=== PATIENT | female | born 1995 | race Hispanic/Latino ===

== ENCOUNTER 2022-09-13 16:37 | Emergency (ER) | payer BC ==
--- OUTSIDE RECORDS SUMMARY | 2022-09-13 16:43 | XMS REPORT | Continuity of Care Document ---
:1995 Author Organization [facility] t Address [address] [place] [address] Care Team Providers Name Role Phone Usama Tejada Attending Clinician Unavailable Physician, Non Associated Attending Clinician Unavailable Shaka Cooley Attending Clinician Omid Cross DO Unavailable Unavailable Luis REDMOND, Michael Unavailable Natalie Duran MA Unavailable Unavailable Usama Tejada PA-C Unavailable Manohar REDMOND, Jeimy Unavailable Nhung Mcmullen MA Unavailable Unavailable Ambika Hoover MA Unavailable Unavailable Lindsey Lara MD Unavailable Payers Payer Name Policy Type Policy Number Effective Date Expiration Date S ource BLUE CROSS BLUE [id number] [facility] BLUE CROSS BLUE E [id number] 2020 2021 00:00:00 [facility] 00:00:00 BLUE CROSS BLUE D [id number] 2017 2018 00:00:00 [facility] 00:00:00 BLUE CROSS BLUE F [id number] 2019 2020 00:00:00 [facility] 00:00:00 $00 G [id number] 2021 00:00:00 Problems Condition Condition Condition Status Onset Resolution Last Treating Co mments Source Name Details Category Date Date Treatment Clinician Date R1 - R1 - Diagnosis Active 2016-04-11 Memoria RIGHT RIGHT 04-11 13:47:00 l LOWER LOWER 00:01: Sohail QUADRANT QUADRANT 00 PAIN PAIN Active 04/11/2016 [facility] DIZZINESS Diagnosis Active 2015-10-18 Memoria DIZZINESS 2- 11:31:00 l Active 00:00: [place] 10/18/2015 00 [facility] Problem Problem [facility] Abortions, Abortions, Active 2012-02-04 Tay, 2.16.84 induced inducedHar 11:33:42 Omid 0.1 .113 rison, DO 883.4.2 TyeComment s: 0 0 0. Abortions, Abortions, Active 2012-02-04 Tay, 2.16.84 spontaneou spontaneou 11:33:42 Arena 0.1.113 s sHarrison, 883.4. 2 DO TyeComment s: 0 0 0. Adnexal Adnexal Active 2016-04-15 Luis, 2. 16.84 mass mass 16:44:27 Branch 0.1.113 (N94.9) 883.4.2 (625.8)Oliver carrillo, [facility] Branch Obesity Obesity Active 2022-01-03 [employer], 2.16.84 with body with body 10:52:12 Natalie 0. 1.113 mass index mass index 88 3.4.2 of 30.0 - of 30.0 - 39.9 39.9 (E66.9) (278.00)Vi ALICIA ly Natalie Deliveries Deliveries Active 2022-01-03 [employer], 2.16.84 (Para) (Para)Vill 10:54:15 Natalie 0.1. 113 ALICIA guzman 883.4.2 ElisaComme nts: 1. Encounter Encounter Active 2022-01-03 Usama Tejada 2.16.84 for for 11:17:11 0.1.113 screening screening 883. 4.2 for for infections infections with with predominan predominan tly sexual tly sexual mode of mode of transmissi transmissi on on (Z11.3) (V74.5)Trvais ruffin PA-C Usama Ectopics EctopicsHa 85489-6 Active 2012-02-04 Tay, 2.16.84 DO cornelia 11:33:42 Arena 0.1. 113 TyeComment 883.4. 2 s: 0 0 0. ENDOMETRIO ENDOMETRIO 14109-4 Active 2019-03-25 B[facility] 2.16.84 SIS NOS SIS NOS 14:02:13 r, Jeimy 0.1. 113 (617.9)Bog 883.4. 2 RUY hathaway Jeimy GravidaSil 22011-6 Active 2017-06-01 Mcmullen, 2.1684 ALICIA estevez 08:34:20 Nhung 0.1.113 JessicaCom 883.4. 2 ments: 1. Never Never 34854-0 Active 2019-03-25 Hoover, 2.1 6.84 smoked smoked 13:52:10 Ambika 0.1.113 cigarettes cigarettes 88 3.4.2 (Z78.9) (V49.89)Melvin, MA Ambika Never Never 02703-4 Active 2022-01-03 Renee, .. smoked smoked 10:52:11 Natalie 0.1.113 cigarettes cigarettes 88 3.4.2 (Z78.9) (V49.89)Vi [facility] Natalie Obesity Obesity 91005-6 Active 2019-03-25 Hoover, with body with body 13:48:30 Ambika 0. 1.113 mass index mass index 88 3.4.2 of 30.0 - of 30.0 - 39.9 39.9 (E66.9) (278.00)Melvin, MA Ambika Ovarian Ovarian 14330-9 Active 2016-05-07 Marco, 2. cyst cyst 16:10:52 Lindsey F 0.1.11 3 (N83.209) 883.4.2 (620.2)MD Lindsey Ferreira F Para ParaBogenr 94918-4 Active 2017-06-01 Bogenriede 2.16.84 RUY ugthrie 10:46:27 r, Jeimy 0. 1.113 NancyComme 883.4. 2 nts: 1. Pregnancie Pregnancie 91205-1 Active 2022-01-03 Renee, 2.16.84 s s 10:54:14 Natalie 0.1.113 () ()V 883 .4.2 ALICIA landon ElisaComme nts: 1. PretermHar 69173-8 Active 2012-02-04 Tay, 2.16.84 rison, DO 11:33:42 Arena 0.1.1 13 TyeComment 883.4. 2 s: 0 0 0. Stillbirth Stillbirth 17849-4 Active 2012-02-04 Tay, 2.16.84 s sHarrison, 11:33:42 Omid 0.1. 113 DO 883.4.2 TyeComment s: 0 0 0. Term TermHarris 19362-4 Active 2012-02-04 Tay, 2.16.84 on, DO 11:33:42 Arena 0.1.113 TyeComment 883.4. 2 s: 0 0 0. Adnexal Adnexal 12619-9 Active 2022-01-03 Renee, 2.16.84 mass mass 10:52:11 Natalie 0.1.113 (N94.9) 883.4.2 (625.8)Riya cui MA Natalie Ovarian Ovarian 63153-9 Active 2022-01-03 Renee, 2.16.84 cyst cyst 10:52:11 Natalie 0.1.113 (N83.209) 883.4.2 (620.2)Riya cui MA Natalie Low blood Low blood Problem Resolve 2016-04-14 Memoria pressure pressure d 03:30:47 l (disorder) (disorder) He rmann Resolved Problem 04/14/2016 [facility] Pre-eclamp Pre-eclam Problem Resolve 2016-04-14 Memoria joshua psia d 03:30:47 l (disorder) (disorder) He rmann Resolved Problem 04/14/2016 [facility] History of Past Illness Condition Condition Condition Status Onset Resolution Last Treating Co mments Source Name Details Category Date Date Treatment Clinician Date Discharge Problem 2015-10-21 2015-10-21 Memoria Diagnosis: Discharge 10-18 05:56:03 05:56:03 l Dizziness Diagnosis: 06:00: Her morris Dizziness 00 10/18/2015 10/21/2015 [facility] Allergies, Adverse Reactions, Alerts Allergy Allergy Status Severity Reaction(s) Onset Inactive Treating Comm ents Source Name Type Date Date Clinician No Known Allergy Active 2.16.84 Drug 0.1.113 Allergie 883.4.2 s No Known Allergy Active 2.16.84 Allergie 0.1.113 s 883.4.2 Social History Social Habit Start Date Stop Date Quantity Comments Source Alcohol Use: Non Drinker / No 2.16.8 40.1.69251 Alcohol Use. 3.4.2 Drug Use: No drug use. ..840.1.1 1388 3.4.2 Non-Contributory 2..840 .1.21378 Social History 3.4.2 Primary None. 840.1. 86582 Control Method: 3.4.2 Tobacco use: Never smoker. .840. 1.20030 3.4.2 Tobacco/Smoke None. .840.1. 55285 Exposure: 3.4.2 Sex Ass[birth year] At [birth year] Female [facility] 00:00:00 00:00:00 Smoking Status Start Date Stop Date Source Never smoked tobacco Medications Ordered Filled Start Stop Current Ordering Indication Dosage Frequency Signature Comments Components Source Medication Medication Date Date Medication? Clinician (SIG) Name Name DayQuil No DayQuilSta 2.16 84 4-29 tus: 0.1.113 10:58: Inactive 883.4.2 25 DayQuil 0 No DayQuilSta 2.16 .84 4-29 tus: 0.1.113 10:58: Inactive 883.4.2 25 DayQuil 0 No DayQuilSta 2.16 .84 4-29 tus: 0.1.113 10:58: Inactive 883.4.2 25 Aleve 220 2021-0 No Aleve 220 Medicatio 2.16.84 MG Oral 4-29 MG Oral n taken 0.1.11 3 Capsule 10:58: Capsule; as 883.4. 2 23 as needed needed. (220 OTC MG)Status: InactiveCo mments: Medication taken as needed. OTC Aleve 220 No Aleve 220 Medicatio 2.16.84 MG Oral 4-29 MG Oral n taken 0.1.11 3 Capsule 10:58: Capsule; as 883.4. 2 23 as needed needed. (220 OTC MG)Status: InactiveCo mments: Medication taken as needed. OTC Aleve 220 No Aleve 220 Medicatio 2.16.84 MG Oral 4-29 MG Oral n taken 0.1.11 3 Capsule 10:58: Capsule; as 883.4. 2 23 as needed needed. (220 OTC MG)Status: InactiveCo mments: Medication taken as needed. OTC Methocarbam No 750mg Every 4 CH RISTU ol 3-06 Hours as S (Robaxin) 23:06: needed for He alth 750 Mg 00 Moderate TABLET Pain(4-6) Tramadol No 50mg Every 6 ANTONETTE U Hcl 3-06 Hours as S (Ultram) 50 23:06: needed for Health Mg TAB 00 Moderate Pain(4-6) methylPREDN Yes methylPRED 2.16.84 ISolone 7-19 NISolone 0.1.113 Acetate 40 14:08: Acetate 40 8 83.4.2 MG/ML 09 MG/ML Injection Injection Suspension Suspension Ordered: 9Bogenried er, [facility] NancyInten t methylPREDN Yes methylPRED 2.16.84 ISolone 7-19 NISolone 0.1.113 Acetate 40 14:08: Acetate 40 8 83.4.2 MG/ML 09 MG/ML Injection Injection Suspension Suspension Ordered: 9Bogenried er, [facility] NancyInten t methylPREDN Yes methylPRED 2.16.84 ISolone 7-19 NISolone 0.1.113 Acetate 40 14:08: Acetate 40 8 83.4.2 MG/ML 09 MG/ML Injection Injection Suspension Suspension Ordered: 9Bogenried er, [facility] NancyInten t methylPREDN Yes methylPRED 2.16.84 ISolone 7-19 NISolone 0.1.113 Acetate 40 13:58: Acetate 40 8 83.4.2 MG/ML 21 MG/ML Injection Injection Suspension Suspension Ordered: 9Bogenried er, [facility] Tia mead methylPREDN 2018- Yes methylPRED 2.16.84 ISolone 7-19 NISolone 0.1.113 Acetate 40 13:58: Acetate 40 8 83.4.2 MG/ML 21 MG/ML Injection Injection Suspension Suspension Ordered: 9Bogenried er, [facility] 2018- Yes methylPRED 2.16.84 ISolone 7-19 NISolone 0.1.113 Acetate 40 13:58: Acetate 40 8 83.4.2 MG/ML 21 MG/ML Injection Injection Suspension Suspension Ordered: 9Bogenried er, [facility] Tia t Albuterol 2021- No 1{Ampul Albuterol one time 2.16.84 Sulfate 03-25 e} Sulfate in office 0.1 .113 (2.5 00:00: 00:00 (2.5 883.4.2 MG/3ML) 00 :00 MG/3ML) 0.083% 0.083% Inhalation Inhalation Nebulizatio Nebulizati n Solution on Solution; 1 (one) Ampule one time order for 1 days Quantity: 1 {Ampule}Re fills: 0Ordered: 2LLAURI pearson AdamStart: 9 End: 2Status: InactiveCo mments: one time in office ProAir HFA 2021- No 2{Inhal 6xD ProAir HFA Medicat io 2.16.84 108 (90 03-25 ation} 108 (90 n taken 0.1 .113 Base) 00:00: 00:00 Base) as 883.4.2 MCG/ACT 00 :00 MCG/ACT needed. Inhalation Inhalation Aerosol Aerosol Solution Solution; 2 (two) Inhalation every four hours, as needed for 7 days Quantity: 1 {Inhaler}R efills: 0Ordered: 2LLAURI pearson AdamStart: 9 End: 2Status: InactiveCo mments: Medication taken as needed. Promethazin 2021- No 5{Nieves Q0.25D Promethazi Medi catio 2.16.84 e-DM 03-25 liter} ne-DM n taken 0.1.113 6.25-15 00:00: 00:00 6.25-15 as 883.4. 2 MG/5ML Oral 00 :00 MG/5ML needed. Syrup Oral Syrup; 5 Milliliter four times daily, as needed for 5 days Quantity: 120 {Millilite r}Refills: 0Ordered: 2LLAURI pearson AdamStart: 9 End: 2Status: InactiveCo mments: Medication taken as needed. Albuterol 2021- No 1{Ampul Albuterol one time 2.16.84 Sulfate 03-25 e} Sulfate in office 0.1 .113 (2.5 00:00: 00:00 (2.5 883.4.2 MG/3ML) 00 :00 MG/3ML) 0.083% 0.083% Inhalation Inhalation Nebulizatio Nebulizati n Solution on Solution; 1 (one) Ampule one time order for 1 days Quantity: 1 {Ampule}Re fills: 0Ordered: LAURI Prakash AdamStart: 9 End: 2Status: InactiveCo mments: one time in office ProAir HFA 2021- No 2{Inhal 6xD ProAir HFA Medicat io 2.16.84 108 (90 03-25 ation} 108 (90 n taken 0.1 .113 Base) 00:00: 00:00 Base) as 883.4.2 MCG/ACT 00 :00 MCG/ACT needed. Inhalation Inhalation Aerosol Aerosol Solution Solution; 2 (two) Inhalation every four hours, as needed for 7 days Quantity: 1 {Inhaler}R efills: 0Ordered: 2LLAURI pearsontart: 9 End: 2Status: InactiveCo mments: Medication taken as needed. Promethazin 2021- No 5{Nieves Q0.25D Promethazi Medi catio 2.16.84 e-DM 03-25 liter} ne-DM n taken 0.1.113 6.25-15 00:00: 00:00 6.25-15 as 883.4. 2 MG/5ML Oral 00 :00 MG/5ML needed. Syrup Oral Syrup; 5 Milliliter four times daily, as needed for 5 days Quantity: 120 {Millilite r}Refills: 0Ordered: 2LLAURI pearson AdamStart: 9 End: 2Status: InactiveCo mments: Medication taken as needed. Albuterol 2021- No 1{Ampul Albuterol one time 2.16.84 Sulfate 03-25 e} Sulfate in office 0.1 .113 (2.5 00:00: 00:00 (2.5 883.4.2 MG/3ML) 00 :00 MG/3ML) 0.083% 0.083% Inhalation Inhalation Nebulizatio Nebulizati n Solution on Solution; 1 (one) Ampule one time order for 1 days Quantity: 1 {Ampule}Re fills: 0Ordered: LAURI Prakash AdamStart: 9 End: 2Status: InactiveCo mments: one time in office ProAir HFA 2021- No 2{Inhal 6xD ProAir HFA Medicat io 2.16.84 108 (90 03-25 ation} 108 (90 n taken 0.1 .113 Base) 00:00: 00:00 Base) as 883.4.2 MCG/ACT 00 :00 MCG/ACT needed. Inhalation Inhalation Aerosol Aerosol Solution Solution; 2 (two) Inhalation every four hours, as needed for 7 days Quantity: 1 {Inhaler}R efills: 0Ordered: 2LLAURI pearsontart: 9 End: 2Status: InactiveCo mments: Medication taken as needed. Promethazin 2021- No 5{Nieves Q0.25D Promethazi [facility] catio 2.16.84 e-DM 03-25 04-29 liter} ne-DM n taken 0.1.113 6.25-15 00:00: 00:00 6.25-15 as 883.4. 2 MG/5ML Oral 00 :00 MG/5ML needed. Syrup Oral Syrup; 5 Milliliter four times daily, as needed for 5 days Quantity: 120 {Millilite r}Refills: 0Ordered: 2LLAURI pearson AdamStart: 9 End: 2Status: InactiveCo mments: Medication taken as needed. Naprosyn 2016- No 1{Table Q0.5D Naprosyn Medicatio 2.16.84 500 MG Oral 05-18 t} 500 MG n taken 0. 1.113 Tablet 00:00: 00:00 Oral as 883.4.2 00 :00 Tablet; 1 needed. (one) take with Tablet two food times daily, as needed for 30 days Quantity: 60 {Tablet}Re fills: 1Ordered: ALICIA Spaulding rt: 7 End: 7Status: Discontinu edComments : Medication taken as needed. take with food Naprosyn 2016- No 1{Table Q0.5D Naprosyn Medicatio 2.16.84 500 MG Oral 05-18 t} 500 MG n taken 0. 1.113 Tablet 00:00: 00:00 Oral as 883.4.2 00 :00 Tablet; 1 needed. (one) take with Tablet two food times daily, as needed for 30 days Quantity: 60 {Tablet}Re fills: 1Ordered: ALICIA Spaulding rt: 7 End: 7Status: Discontinu edComments : Medication taken as needed. take with food Naprosyn 2016- No 1{Table Q0.5D Naprosyn Medicatio 2.16.84 500 MG Oral 05-18 t} 500 MG n taken 0. 1.113 Tablet 00:00: 00:00 Oral as 883.4.2 00 :00 Tablet; 1 needed. (one) take with Tablet two food times daily, as needed for 30 days Quantity: 60 {Tablet}Re fills: 1Ordered: ALICIA Spaulding rt: 7 End: 7Status: Discontinu edComments : Medication taken as needed. take with food AMOXICILLIN No AMOXICILLI Tooth 2.16.84 , 500MG 8-09 N, 500MG infection 0.1 .113 (Oral 15:59: (Oral 883.4.2 Capsule) 35 Capsule); (500 MG)Status: InactiveCo mments: Tooth infection AMOXICILLIN No AMOXICILLI Tooth 2.16.84 , 500MG 8-09 N, 500MG infection 0.1 .113 (Oral 15:59: (Oral 883.4.2 Capsule) 35 Capsule); (500 MG)Status: InactiveCo mments: Tooth infection AMOXICILLIN No AMOXICILLI Tooth 2.16.84 , 500MG 8-09 N, 500MG infection 0.1 .113 (Oral 15:59: (Oral 883.4.2 Capsule) 35 Capsule); (500 MG)Status: InactiveCo mments: Tooth infection MACROBID, 2016- No 1{Capsu Q0.5D MACROBID, 2.16.84 100MG (Oral 04-07-08 le} 100MG 0.1.11 3 Capsule) 00:00: 00:00 (Oral 883.4.2 00 :00 Capsule); 1 Capsule two times daily for 7 days Quantity: 14 {Capsule}R efills: 0Ordered: 07-Apr-2016 Tristan Navarro : 07-Apr-2016 End: 14-Apr-2016 Status: Inactive MACROBID, 2015- No 1{Capsu Q0.5D MACROBID, 2.16.84 100MG (Oral 04-07 08-08 le} 100MG 0.1.11 3 Capsule) 00:00: 00:00 (Oral 883.4.2 00 :00 Capsule); 1 Capsule two times daily for 7 days Quantity: 14 {Capsule}R efills: 0Ordered: 07-Apr-2016 Tristan Navarro : 07-Apr-2016 End: 14-Apr-2016 Status: Inactive MACROBID, 2015- No 1{Capsu Q0.5D MACROBID, 2.16.84 100MG (Oral 04-07 08-08 le} 100MG 0.1.11 3 Capsule) 00:00: 00:00 (Oral 883.4.2 00 :00 Capsule); 1 Capsule two times daily for 7 days Quantity: 14 {Capsule}R efills: 0Ordered: 07-Apr-2016 Tristan Navarro : 07-Apr-2016 End: 14-Apr-2016 Status: Inactive meclizine Yes 25 mg = 1 Mem oria 25 mg oral 2-11 tab, PO, l tablet 18:15: TID, PRN Sohail 00 dizziness, X 10 day, # 30 tab, 0 Refill(s) Meclizine No Notes: Memori a 2-11 (Same as: l 16:43: Antivert) [place] 00 PROMETHWARNER 2012-09- No 1{Table PROMETHAZI Medica candelaria 2.16.84 E HCL, 50MG 0-03 10-07 t} NE HCL, n taken 0 .1.113 (Oral 00:00: 00:00 50MG (Oral as 883.4 .2 Tablet) 00 :00 Tablet); 1 needed. (one) Dr. Daryl Abrams every eight hours as needed for nausea for 4 days Quantity: 12 {Tablet}Re fills: 0Ordered: 09-Jun-2013 LAURI Fernandez tart: 09-Jun-2013 End: 13-Jun-2013 Status: InactiveCo mments: Medication taken as needed. Dr. Jose Alberto HOFFMAN 2012-09- No 1{Table PROMETHAZI Medica candelaria 2.16.84 E HCL, 50MG 0-03 10-07 t} NE HCL, n taken 0 .1.113 (Oral 00:00: 00:00 50MG (Oral as 883.4 .2 Tablet) 00 :00 Tablet); 1 needed. (one) Dr. Daryl Abrams every eight hours as needed for nausea for 4 days Quantity: 12 {Tablet}Re fills: 0Ordered: 09-Jun-2013 LAURI Fernandez tart: 09-Jun-2013 End: 13-Jun-2013 Status: InactiveCo mments: Medication taken as needed. Dr. Jose Alberto HOFFMAN 2012-09- No 1{Table PROMETHAZI Medica candelaria 2.16.84 E HCL, 50MG 006-13 t} NE HCL, n taken 0 .1.113 (Oral 00:00: 00:00 50MG (Oral as 883.4 .2 Tablet) 00 :00 Tablet); 1 needed. (one) Dr. Daryl Abrams every eight hours as needed for nausea for 4 days Quantity: 12 {Tablet}Re fills: 0Ordered: 09-Jun-2013 LAURI Fernandez tart: 09-Jun-2013 End: 13-Jun-2013 Status: InactiveCo mments: Medication taken as needed. Dr. Jose Alberto LOBO, 2010-09- No 1{Table Q0.3333D ZOFRAN Medica candelaria 2.16.84 4MG (Oral 09-16 t_Dispe ODT, 4MG n taken 0.1.113 Tablet 00:00: 00:00 rse} (Oral as 883.4.2 Dispersible 00 :00 Tablet needed. ) Dispersibl e); 1 Tablet Disperse three times daily, as needed for 0 days Quantity: 15 {Tablet_Di sperse}Ref ills: 1Ordered: 09-Jun-2013 ALICIA Najera rt: 1 End: 09-Jun-2013 Status: Discontinu edComments : Medication taken as needed. ZOHENRY LOBO, 2010-09- No 1{Table Q0.3333D ZOFRAN Medica candelaria 2.16.84 4MG (Oral 09-16 t_Dispe ODT, 4MG n taken 0.1.113 Tablet 00:00: 00:00 rse} (Oral as 883.4.2 Dispersible 00 :00 Tablet needed. ) Dispersibl e); 1 Tablet Disperse three times daily, as needed for 0 days Quantity: 15 {Tablet_Di sperse}Ref ills: 1Ordered: 09-Jun-2013 Reinaldo ALICIA Tapia rt: 1 End: 09-Jun-2013 Status: Discontinu edComments : Medication taken as needed. ZOFRAN ODT, 2010-09- No 1{Table Q0.3333D ZOFRAN Medica candelaria 2.16.84 4MG (Oral 09-16- t_Dispe ODT, 4MG n taken 0.1.113 Tablet 00:00: 00:00 rse} (Oral as 883.4.2 Dispersible 00 :00 Tablet needed. ) Dispersibl e); 1 Tablet Disperse three times daily, as needed for 0 days Quantity: 15 {Tablet_Di sperse}Ref ills: 1Ordered: 09-Jun-2013 Reinaldo ALICIA Tapia rt: 1 End: 09-Jun-2013 Status: Discontinu edComments : Medication taken as needed. 2010-09- No 1{Table 2 .16.84 FORMULA, 0-20 10-03 t} FORMULA, 0.1.11 3 27-1MG 00:00: 00:00 27-1MG 883.4.2 (Oral 00 :00 (Oral Tablet) Tablet); 1 Tablet 1 tab daily for 30 days Quantity: 30 {Tablet}Re fills: 9Ordered: 09-Jun-2013 ALICIA Najera rt: 1 End: 09-Jun-2013 Status: Inactive 2010-09- No 1{Table 2 .16.84 FORMULA, 0-20 10-03 t} FORMULA, 0.1.11 3 27-1MG 00:00: 00:00 27-1MG 883.4.2 (Oral 00 :00 (Oral Tablet) Tablet); 1 Tablet 1 tab daily for 30 days Quantity: 30 {Tablet}Re fills: 9Ordered: 09-Jun-2013 ALICIA Najera rt: 1 End: 09-Jun-2013 Status: Inactive 2010-09- No 1{Table 2 .16.84 FORMULA, 0-20 10-03 t} FORMULA, 0.1.11 3 27-1MG 00:00: 00:00 27-1MG 883.4.2 (Oral 00 :00 (Oral Tablet) Tablet); 1 Tablet 1 tab daily for 30 days Quantity: 30 {Tablet}Re fills: 9Ordered: 09-Jun-2013 ALICIA Najera rt: 1 End: 09-Jun-2013 Status: Inactive ORTHO-CEPT 2010- No 1{Table ORTHO-CEPT 2.16.84 (28), 12-24 t} (28), 0.1.113 0.15-30MG-M 00:00: 00:00 0.15-30MG- 883.4.2 CG (Oral 00 :00 MCG (Oral Tablet) Tablet); 1 (one) Tablet qd for 0 days Quantity: 28 {Tablet}Re fills: 11Ordered: 08-Jul-2011 ALICIA Najera rt: 1 End: 08-Jul-2011 Status: Inactive ORTHO-CEPT 2010- No 1{Table ORTHO-CEPT 2.16.84 (28), 12-24 t} (28), 0.1.113 0.15-30MG-M 00:00: 00:00 0.15-30MG- 883.4.2 CG (Oral 00 :00 MCG (Oral Tablet) Tablet); 1 (one) Tablet qd for 0 days Quantity: 28 {Tablet}Re fills: 11Ordered: 08-Jul-2011 ALICIA Najera rt: 1 End: 08-Jul-2011 Status: Inactive ORTHO-CEPT 2010- No 1{Table ORTHO-CEPT 2.16.84 (28), 12-24 t} (28), 0.1.113 0.15-30MG-M 00:00: 00:00 0.15-30MG- 883.4.2 CG (Oral 00 :00 MCG (Oral Tablet) Tablet); 1 (one) Tablet qd for 0 days Quantity: 28 {Tablet}Re fills: 11Ordered: 08-Jul-2011 ALICIA Najera rt: 1 End: 08-Jul-2011 Status: Inactive BACTRIM DS, 2010- No 1{Table BACTRIM 2.16.84 800-160MG 12-24 t} DS, 0.1.113 (Oral 00:00: 00:00 800-160MG 883.4. 2 Tablet) 00 :00 (Oral Tablet); 1 Tablet BID for 5 days Quantity: 10 {Tablet}Re fills: 0Ordered: Garret carter rt: 1 End: 1Status: Inactive BACTRIM DS, 2010- No 1{Table BACTRIM 2.16.84 800-160MG 12-24 t} DS, 0.1.113 (Oral 00:00: 00:00 800-160MG 883.4. 2 Tablet) 00 :00 (Oral Tablet); 1 Tablet BID for 5 days Quantity: 10 {Tablet}Re fills: 0Ordered: Garret carter rt: 1 End: 1Status: Inactive BACTRIM DS, 2010- No 1{Table BACTRIM 2.16.84 800-160MG 12-24 t} DS, 0.1.113 (Oral 00:00: 00:00 800-160MG 883.4. 2 Tablet) 00 :00 (Oral Tablet); 1 Tablet BID for 5 days Quantity: 10 {Tablet}Re fills: 0Ordered: Garret Boyle rt: 1 End: 1Status: Inactive Vital Signs Vital Name Observation Time Observation Value Comments Source Temperature 2022-01-03 98.5 [degF] Method: Oral 2..840.1.1138 10:49:51 83.4.2 Pulse 2022-01-03 62 /min Pattern: Regular 2.840.1. 1138 10:49:51 83.4.2 Respiration Rate 2022-01-03 20 /min Pattern: 2.840.1. 1138 10:49:51 Unlabored 83.4.2 O2 SAT 2022-01-03 99 % Room air 2..840.1.1138 10:49:51 83.4.2 BP Systolic 2022-01-03 114 mm[Hg] Patient 2.840.1.1138 10:49:51 Position: 83.4.2 Sitting; Cuff Location: Left Arm; Cuff Size: Standard BP Diastolic 2022-01-03 79 mm[Hg] Patient 2.840.1.1138 10:49:51 Position: 83.4.2 Sitting; Cuff Location: Left Arm; Cuff Size: Standard Weight 2022-01-03 188 [lb_av] 2.840.1.1138 10:49:51 83.4.2 Height 2022-01-03 63.5 [in_us] 2.840.1.1138 10:49:51 83.4.2 BMI 2022-01-03 32.78 kg/m2 2.840.1.1138 10:49:51 83.4.2 BP Systolic 2019-03-25 116 mm[Hg] Patient 2.840.1.1138 13:47:01 Position: 83.4.2 Sitting; Cuff Location: Left Arm; Cuff Size: Standard BP Diastolic 2019-03-25 69 mm[Hg] Patient 2.840.1.1138 13:47:01 Position: 83.4.2 Sitting; Cuff Location: Left Arm; Cuff Size: Standard Weight 2019-03-25 202.25 [lb_av] 2..840.1.11 38 13:47:01 83.4.2 Height 2019-03-25 63.5 [in_us] 2.16.840.1.1138 13:47:01 83.4.2 BMI 2019-03-25 35.26 kg/m2 2.840.1.1138 13:47:01 83.4.2 Temperature 2019-03-25 98.1 [degF] Method: Oral 2..840.1.1138 13:47:01 83.4.2 Pulse 2019-03-25 86 /min Pattern: Regular 2.840.1. 1138 13:47:01 83.4.2 Respiration Rate 2019-03-25 18 /min Pattern: 2.0.1. 1138 13:47:01 Unlabored 83.4.2 O2 SAT 2019-03-25 99 % Room air 2.16.840.1.1138 13:47:01 83.4.2 Temperature 2017-06-01 98.4 [degF] Method: Oral 2.0.1.1138 08:30:38 83.4.2 Pulse 2017-06-01 77 /min Pattern: Regular 2.0.1. 1138 08:30:38 83.4.2 Respiration Rate 2017-06-01 20 /min Pattern: 2.0.1. 1138 08:30:38 Unlabored 83.4.2 BP Systolic 2017-06-01 103 mm[Hg] Patient 2..840.1.1138 08:30:38 Position: 83.4.2 Sitting; Cuff Location: Left Arm; Cuff Size: Standard BP Diastolic 2017-06-01 73 mm[Hg] Patient 2.840.1.1138 08:30:38 Position: 83.4.2 Sitting; Cuff Location: Left Arm; Cuff Size: Standard Weight 2017-06-01 242.9 [lb_av] 2.16.840.1.113 8 08:30:38 83.4.2 Height 2017-06-01 63.5 [in_us] 2.16.840.1.1138 08:30:38 83.4.2 BMI 2017-06-01 42.35 kg/m2 2.160.1.1138 08:30:38 83.4.2 Temperature 2017-05-18 97.8 [degF] Method: Oral 2.840.1.1138 11:35:28 83.4.2 Pulse 2017-05-18 80 /min Pattern: Regular 2.0.1. 1138 11:35:28 83.4.2 Respiration Rate 2017-05-18 18 /min Pattern: 2.0.1. 1138 11:35:28 Unlabored 83.4.2 BP Systolic 2017-05-18 109 mm[Hg] Patient 2.840.1.1138 11:35:28 Position: 83.4.2 Sitting; Cuff Location: Left Arm; Cuff Size: Standard BP Diastolic 2017-05-18 75 mm[Hg] Patient 2.16840.1.1138 11:35:28 Position: 83.4.2 Sitting; Cuff Location: Left Arm; Cuff Size: Standard Weight 2017-05-18 240 [lb_av] 2.16.840.1.1138 11:35:28 83.4.2 Height 2017-05-18 63.5 [in_us] 2.16.840.1.1138 11:35:28 83.4.2 BMI 2017-05-18 41.85 kg/m2 2.16840.1.1138 11:35:28 83.4.2 Temperature 2016-05-07 98.1 [degF] Method: Oral 2840.1.1138 15:47:14 83.4.2 Pulse 2016-05-07 86 /min Pattern: Regular 10.23.830.1. 1138 15:47:14 83.4.2 BP Systolic 2016-05-07 115 mm[Hg] Patient 2.840.1.1138 15:47:14 Position: 83.4.2 Sitting; Cuff Location: Left Arm; Cuff Size: Standard BP Diastolic 2016-05-07 76 mm[Hg] Patient 2..840.1.1138 15:47:14 Position: 83.4.2 Sitting; Cuff Location: Left Arm; Cuff Size: Standard Weight 2016-05-07 217.25 [lb_av] 2.16840.1.11 38 15:47:14 83.4.2 Height 2016-05-07 63.5 [in_us] 2.16.840.1.1138 15:47:14 83.4.2 BMI 2016-05-07 37.88 kg/m2 2.160.1.1138 15:47:14 83.4.2 Temperature 2016-04-15 98 [degF] Method: Oral 10.23.830.1.1138 15:56:53 83.4.2 Pulse 2016-04-15 75 /min Pattern: Regular 10.23.830.. 113 15:56:53 83.4.2 Respiration Rate 2016-04-15 21 /min Pattern: 2.16840.1. 1138 15:56:53 Unlabored 83.4.2 BP Systolic 2016-04-15 118 mm[Hg] Patient 2.16.840.1.1138 15:56:53 Position: 83.4.2 Sitting; Cuff Location: Left Arm; Cuff Size: Standard BP Diastolic 2016-04-15 78 mm[Hg] Patient 2..840.1.1138 15:56:53 Position: 83.4.2 Sitting; Cuff Location: Left Arm; Cuff Size: Standard Weight 2016-04-15 219.125 [lb_av] 2.16.840.1.1 138 15:56:53 83.4.2 Height 2016-04-15 63.5 [in_us] 2.16.840.1.1138 15:56:53 83.4.2 BMI 2016-04-15 38.21 kg/m2 2.16.840.1.1138 15:56:53 83.4.2 Temperature 2016-04-07 97.9 [degF] Method: Oral 2.16.840.1.1138 19:30:48 83.4.2 Pulse 2016-04-07 68 /min Pattern: Regular 2..840.1. 1138 19:30:48 83.4.2 Respiration Rate 2016-04-07 18 /min Pattern: 2.840.1. 1138 19:30:48 Unlabored 83.4.2 BP Systolic 2016-04-07 121 mm[Hg] Patient 2..840.1.1138 19:30:48 Position: 83.4.2 Sitting; Cuff Location: Left Arm; Cuff Size: Standard BP Diastolic 2016-04-07 82 mm[Hg] Patient 2..840.1.1138 19:30:48 Position: 83.4.2 Sitting; Cuff Location: Left Arm; Cuff Size: Standard Weight 2016-04-07 210.25 [lb_av] 2.16.840.1.11 38 19:30:48 83.4.2 Height 2016-04-07 63.5 [in_us] 2.16.840.1.1138 19:30:48 83.4.2 BMI 2016-04-07 36.66 kg/m2 2.16.840.1.1138 19:30:48 83.4.2 Temperature 2013-06-09 98 [degF] Method: Oral 2.16.840.1.1138 13:20:50 83.4.2 Pulse 2013-06-09 73 /min Pattern: Regular 2.16.840.1. 1138 13:20:50 83.4.2 Respiration Rate 2013-06-09 16 /min Pattern: 2.16.840.1. 1138 13:20:50 Unlabored 83.4.2 BP Systolic 2013-06-09 120 mm[Hg] Patient 2.16840.1.1138 13:20:50 Position: 83.4.2 Sitting; Cuff Location: Left Arm; Cuff Size: Standard BP Diastolic 2013-06-09 80 mm[Hg] Patient 2..840.1.1138 13:20:50 Position: 83.4.2 Sitting; Cuff Location: Left Arm; Cuff Size: Standard Weight 2013-06-09 217.2 [lb_av] 2.16.840.1.113 8 13:20:50 83.4.2 Height 2013-06-09 64.25 [in_us] 2.16.840.1.113 8 13:20:50 83.4.2 BMI 2013-06-09 36.99 kg/m2 2.16.840.1.1138 13:20:50 83.4.2 BMI Percentile 2013-06-09 98 % 2.16.840.1.11 38 13:20:50 83.4.2 BP Systolic 2012-02-12 125 mm[Hg] Patient 2.16840.1.1138 10:38:03 Position: 83.4.2 Sitting; Cuff Location: Left Arm; Cuff Size: Standard BP Diastolic 2012-02-12 71 mm[Hg] Patient 2.16.840.1.1138 10:38:03 Position: 83.4.2 Sitting; Cuff Location: Left Arm; Cuff Size: Standard BP Systolic 2012-02-04 144 mm[Hg] Patient 2.16.840.1.1138 10:49:52 Position: 83.4.2 Sitting; Cuff Location: Left Arm; Cuff Size: Standard BP Diastolic 2012-02-04 104 mm[Hg] Patient 2..840.1.1138 10:49:52 Position: 83.4.2 Sitting; Cuff Location: Left Arm; Cuff Size: Standard Pulse 2012-02-04 79 /min Pattern: Regular 2.840.1. 1138 10:49:52 83.4.2 Weight 2012-02-04 244 [lb_av] 2.840.1.1138 10:49:52 83.4.2 BP Systolic 2012-01-28 127 mm[Hg] Patient 2..840.1.1138 10:24:01 Position: 83.4.2 Sitting; Cuff Location: Left Arm; Cuff Size: Large BP Diastolic 2012-01-28 86 mm[Hg] Patient 2..840.1.1138 10:24:01 Position: 83.4.2 Sitting; Cuff Location: Left Arm; Cuff Size: Large Weight 2012-01-28 226 [lb_av] 2..840.1.1138 10:24:01 83.4.2 BP Systolic 2012-01-19 126 mm[Hg] Patient 2..840.1.1138 09:55:21 Position: 83.4.2 Sitting; Cuff Location: Left Arm; Cuff Size: Standard BP Diastolic 2012-01-19 86 mm[Hg] Patient 2..840.1.1138 09:55:21 Position: 83.4.2 Sitting; Cuff Location: Left Arm; Cuff Size: Standard Weight 2012-01-19 220.8 [lb_av] 2..840.1.113 8 09:55:21 83.4.2 BP Systolic 2012-01-05 126 mm[Hg] Patient 2..840.1.1138 09:46:07 Position: 83.4.2 Sitting; Cuff Location: Left Arm; Cuff Size: Standard BP Diastolic 2012-01-05 81 mm[Hg] Patient 2..840.1.1138 09:46:07 Position: 83.4.2 Sitting; Cuff Location: Left Arm; Cuff Size: Standard Weight 2012-01-05 214 [lb_av] 2..840.1.1138 09:46:07 83.4.2 BP Systolic 2011-12-23 122 mm[Hg] Patient 2.840.1.1138 10:04:42 Position: 83.4.2 Sitting; Cuff Location: Left Arm; Cuff Size: Standard BP Diastolic 2011-12-23 78 mm[Hg] Patient 2..840.1.1138 10:04:42 Position: 83.4.2 Sitting; Cuff Location: Left Arm; Cuff Size: Standard Weight 2011-12-23 209.4 [lb_av] 2..840.1.113 8 10:04:42 83.4.2 BP Systolic 2011-12-12 111 mm[Hg] Patient 2.840.1.1138 14:32:50 Position: 83.4.2 Sitting; Cuff Location: Left Arm; Cuff Size: Standard BP Diastolic 2011-12-12 73 mm[Hg] Patient 2..840.1.1138 14:32:50 Position: 83.4.2 Sitting; Cuff Location: Left Arm; Cuff Size: Standard Weight 2011-12-12 203.2 [lb_av] 2..840.1.113 8 14:32:50 83.4.2 Temperature 2011-11-20 98.3 [degF] Method: Oral 2..840.1.1138 16:42:53 83.4.2 Pulse 2011-11-20 90 /min Pattern: Regular 2..840.1. 1138 16:42:53 83.4.2 Respiration Rate 2011-11-20 18 /min Pattern: 2..840.1. 1138 16:42:53 Unlabored 83.4.2 BP Systolic 2011-11-20 108 mm[Hg] Patient 2.840.1.1138 16:42:53 Position: 83.4.2 Sitting; Cuff Location: Left Arm; Cuff Size: Standard BP Diastolic 2011-11-20 70 mm[Hg] Patient 2..840.1.1138 16:42:53 Position: 83.4.2 Sitting; Cuff Location: Left Arm; Cuff Size: Standard Weight 2011-11-20 196.125 [lb_av] 2.16.840.1.1 138 16:42:53 83.4.2 BP Systolic 2011-10-23 126 mm[Hg] Patient 2.16840.1.1138 14:41:43 Position: 83.4.2 Sitting; Cuff Location: Left Arm; Cuff Size: Standard BP Diastolic 2011-10-23 73 mm[Hg] Patient 2.16840.1.1138 14:41:43 Position: 83.4.2 Sitting; Cuff Location: Left Arm; Cuff Size: Standard Weight 2011-10-23 187.6 [lb_av] 2.16.840.1.113 8 14:41:43 83.4.2 Pulse 2011-09-23 89 /min Pattern: Regular 2.840.1. 1138 09:38:04 83.4.2 BP Systolic 2011-09-23 110 mm[Hg] Patient 2.840.1.1138 09:38:04 Position: 83.4.2 Sitting; Cuff Location: Left Arm; Cuff Size: Standard BP Diastolic 2011-09-23 71 mm[Hg] Patient 2.840.1.1138 09:38:04 Position: 83.4.2 Sitting; Cuff Location: Left Arm; Cuff Size: Standard Weight 2011-09-23 178.8 [lb_av] 2.16.840.1.113 8 09:38:04 83.4.2 Temperature 2011-08-27 98.6 [degF] 2.16.840.1.1138 09:36:15 83.4.2 Pulse 2011-08-27 80 /min Pattern: Regular 2.16840.1. 1138 09:36:15 83.4.2 BP Systolic 2011-08-27 115 mm[Hg] Patient 2.840.1.1138 09:36:15 Position: 83.4.2 Sitting; Cuff Location: Left Arm; Cuff Size: Standard BP Diastolic 2011-08-27 75 mm[Hg] Patient 2.16840.1.1138 09:36:15 Position: 83.4.2 Sitting; Cuff Location: Left Arm; Cuff Size: Standard Weight 2011-08-27 176 [lb_av] 2.16.840.1.1138 09:36:15 83.4.2 BP Systolic 2011-08-07 105 mm[Hg] Patient 2..840.1.1138 13:50:36 Position: 83.4.2 Sitting; Cuff Location: Left Arm; Cuff Size: Standard BP Diastolic 2011-08-07 73 mm[Hg] Patient 2..840.1.1138 13:50:36 Position: 83.4.2 Sitting; Cuff Location: Left Arm; Cuff Size: Standard Weight 2011-08-07 180 [lb_av] 2.16.840.1.1138 13:50:36 83.4.2 Pulse 2011-07-29 83 /min Pattern: Regular 2..840.1. 1138 15:37:23 83.4.2 BP Systolic 2011-07-29 116 mm[Hg] Patient 2..840.1.1138 15:37:23 Position: 83.4.2 Sitting; Cuff Location: Left Arm; Cuff Size: Standard BP Diastolic 2011-07-29 74 mm[Hg] Patient 2..840.1.1138 15:37:23 Position: 83.4.2 Sitting; Cuff Location: Left Arm; Cuff Size: Standard Weight 2011-07-29 180 [lb_av] 2.16.840.1.1138 15:37:23 83.4.2 Temperature 2011-07-17 98.7 [degF] Method: Oral 2.16.840.1.1138 20:08:46 83.4.2 Pulse 2011-07-17 80 /min Pattern: Regular 2..840.1. 1138 20:08:46 83.4.2 BP Systolic 2011-07-17 126 mm[Hg] Patient 2..840.1.1138 20:08:46 Position: 83.4.2 Sitting; Cuff Location: Left Arm; Cuff Size: Standard BP Diastolic 2011-07-17 68 mm[Hg] Patient 2..840.1.1138 20:08:46 Position: 83.4.2 Sitting; Cuff Location: Left Arm; Cuff Size: Standard Weight 2011-07-17 184.5 [lb_av] 2.16.840.1.113 8 20:08:46 83.4.2 BP Systolic 2011-07-08 99 mm[Hg] Patient 2.16.840.1.1138 09:31:50 Position: 83.4.2 Sitting; Cuff Location: Left Arm; Cuff Size: Standard BP Diastolic 2011-07-08 62 mm[Hg] Patient 2.16.840.1.1138 09:31:50 Position: 83.4.2 Sitting; Cuff Location: Left Arm; Cuff Size: Standard Weight 2011-07-08 185.4 [lb_av] 2..840.1.113 8 09:31:50 83.4.2 Temperature 2011-07-02 98.8 [degF] Method: Oral 840.1.1138 11:43:44 83.4.2 Pulse 2011-07-02 82 /min Pattern: Regular 840.1. 1138 11:43:44 83.4.2 Respiration Rate 2011-07-02 20 /min Pattern: 2840.1. 1138 11:43:44 Unlabored 83.4.2 BP Systolic 2011-07-02 115 mm[Hg] Patient 2..840.1.1138 11:43:44 Position: 83.4.2 Sitting; Cuff Location: Left Arm; Cuff Size: Standard BP Diastolic 2011-07-02 76 mm[Hg] Patient 2.16.840.1.1138 11:43:44 Position: 83.4.2 Sitting; Cuff Location: Left Arm; Cuff Size: Standard Weight 2011-07-02 184.125 [lb_av] 2..840.1.1 138 11:43:44 83.4.2 Temperature 2011-06-26 98.7 [degF] Method: Oral 840.1.1138 14:21:05 83.4.2 Pulse 2011-06-26 71 /min Pattern: Regular 10.23.830.. 1138 14:21:05 83.4.2 Respiration Rate 2011-06-26 16 /min Pattern: 10.23.830.1. 1138 14:21:05 Unlabored 83.4.2 BP Systolic 2011-06-26 118 mm[Hg] Patient 2.840.1.1138 14:21:05 Position: 83.4.2 Sitting; Cuff Location: Left Arm; Cuff Size: Standard BP Diastolic 2011-06-26 79 mm[Hg] Patient 2.16.840.1.1138 14:21:05 Position: 83.4.2 Sitting; Cuff Location: Left Arm; Cuff Size: Standard Weight 2011-06-26 184 [lb_av] 2.16.840.1.1138 14:21:05 83.4.2 Temperature 2011-05-29 98.3 [degF] Method: Oral 2.16.840.1.1138 16:47:27 83.4.2 Pulse 2011-05-29 59 /min Pattern: Regular 2.16.840.1. 1138 16:47:27 83.4.2 BP Systolic 2011-05-29 108 mm[Hg] Patient 2.16.840.1.1138 16:47:27 Position: 83.4.2 Sitting; Cuff Location: Left Arm; Cuff Size: Standard BP Diastolic 2011-05-29 74 mm[Hg] Patient 2.16.840.1.1138 16:47:27 Position: 83.4.2 Sitting; Cuff Location: Left Arm; Cuff Size: Standard Weight 2011-05-29 108.375 [lb_av] 2.16.840.1.1 138 16:47:27 83.4.2 Temperature 2010-12-24 97.3 [degF] Method: Oral 2..840.1.1138 15:14:03 83.4.2 Pulse 2010-12-24 75 /min Pattern: Regular 2.16.840.1. 1138 15:14:03 83.4.2 Respiration Rate 2010-12-24 18 /min 2.16.840.1. 1138 15:14:03 83.4.2 BP Systolic 2010-12-24 113 mm[Hg] 2.16.840.1.1138 15:14:03 83.4.2 BP Diastolic 2010-12-24 61 mm[Hg] 2.16.840.1.1138 15:14:03 83.4.2 Weight 2010-12-24 180 [lb_av] 2.16.840.1.1138 15:14:03 83.4.2 Temperature 2010-12-02 97.5 [degF] Method: Oral 2..840.1.1138 13:39:29 83.4.2 Pulse 2010-12-02 77 /min Pattern: Regular 2..840.1. 1138 13:39:29 83.4.2 Respiration Rate 2010-12-02 20 /min Pattern: 2.840.1. 1138 13:39:29 Unlabored 83.4.2 BP Systolic 2010-12-02 115 mm[Hg] Patient 2.16.840.1.1138 13:39:29 Position: 83.4.2 Sitting; Cuff Location: Left Arm; Cuff Size: Standard BP Diastolic 2010-12-02 72 mm[Hg] Patient 2.16.840.1.1138 13:39:29 Position: 83.4.2 Sitting; Cuff Location: Left Arm; Cuff Size: Standard Weight 2010-12-02 178.4 [lb_av] 2.16.840.1.113 8 13:39:29 83.4.2 BP Diastolic 2020-11-10 63 mm[Hg] [facility] 23:20:00 BP Systolic 2020-11-10 107 mm[Hg] [facility] 23:20:00 Heart Rate 2020-11-10 75 /min [facility] 23:20:00 Respiratory rate 2020-11-10 16 /min [facility] 23:20:00 Body Temperature 2020-11-10 98.2 [degF] [facility]:20:00 BP Diastolic 2020-11-10 63 mm[Hg] [facility] 23:10:00 BP Systolic 2020-11-10 107 mm[Hg] [facility] 23:10:00 Heart Rate 2020-11-10 75 /min [facility] 23:10:00 Respiratory rate 2020-11-10 16 /min [facility]:10:00 BP Diastolic 2020-11-10 73 mm[Hg] [facility] 22:10:00 BP Systolic 2020-11-10 129 mm[Hg] [facility] 22:10:00 Heart Rate 2020-11-10 74 /min [facility] 22:10:00 Respiratory rate 2020-11-10 17 /min [facility] 22:10:00 Heart Rate 2020-11-10 73 /min [facility] 21:23:00 BP Diastolic 2020-11-10 79 mm[Hg] [facility] 21:10:00 BP Systolic 2020-11-10 124 mm[Hg] [facility] 21:10:00 Heart Rate 2020-11-10 73 /min [facility] 21:10:00 Respiratory rate 2020-11-10 19 /min [facility] 21:10:00 Body Temperature 2020-11-10 98.2 [degF] [facility] 21:10:00 Systolic (mm Hg) 2015-10-18 [facility] 18:25:00 [place] Diastolic (mm Hg) 2015-10-18 [facility] 18:25:00 [place] Heart Rate 2015-10-18 [facility] 18:25:00 [place] Respitory Rate 2015-10-18 [facility] 18:25:00 [place] Respitory Rate 2015-10-18 [facility] 16:04:00 [place] Heart Rate 2015-10-18 [facility] 16:04:00 [place] Systolic (mm Hg) 2015-10-18 [facility] 16:04:00 [place] Diastolic (mm Hg) 2015-10-18 [facility] 16:04:00 [place] Height 2015-10-18 162.56 cm [facility] 16:04:00 [place] Weight 2015-10-18 [facility] 16:04:00 [place] BMI Calculated 2015-10-18 [facility] 16:04:00 [place] Procedures Procedure Date / Time Performing Clinician Source Performed NEGATIVE SCREEN FOR CLINICAL 2022-01-03 00:00:00 Usama Tejada 2.16.840.1.817032. DEPRESSION, FOLLOW-UP NOT 4.2 REQUIRED (G8510) [id number] 2022-01-03 00:00:00 Usama Tejada 2.16 .840.1.605904. COUNSELING FOR OBESITY 4.2 (G0447) DOCUMENTATION OF FOLLOW-UP 2022-01-03 00:00:00 Usama Tejada 2 .16.840.1.194556. PLAN FOR PATIENT WITH BMI 4.2 ABOVE NORMAL (G8417) PATIENT SCREENED FOR TOBACCO 2022-01-03 00:00:00 Usama Tejada 2.16.840.1.362943. USE AND IDENTIFIED A 4.2 TOBACCO NON-USER (G9903) SCREENING FOR TOBACCO USE 2022-01-03 00:00:00 Usama Tejada 2. 16.840.1.430179. (4004F) 4.2 Pap Smear 2021-09-07 00:00:00 Renee Natalie 2.16.840.1. 179127. 4.2 Annual Eye Exam - FOR 2021-07-08 00:00:00 Renee Natalie 2.16. 840.1.984918. NON-DIABETICS ONLY 4.2 Patient received annual 2021-07-08 00:00:00 Renee Natalie 2.1 6.840.1.399610. dental check-up 4.2 X-ray of knee, three views 2020-11-10 00:00:00 [facility], single view 2020-11-10 00:00:00 [facility] X-ray of hand, three or more 2020-11-10 00:00:00 [facility] views ADMINISTRATION OF NEBULIZER 2019-03-25 00:00:00 Alise Villela 2.16.840.1.949921. TREATMENT IN ADULT (84852) 4.2 PATIENT SCREENED FOR TOBACCO 2019-03-25 00:00:00 Kymberly Villela 2.16.840.1.707814. USE AND IDENTIFIED A 4.2 TOBACCO NON-USER (G9903) SCREENING FOR TOBACCO USE 2019-03-25 00:00:00 Jeimy Villela 2.16.840.1.170630. (4004F) 4.2 NMBI-[facility] 2019-03-25 00:00:00 Jeimy Villela 2.16.840.1.028743. COUNSELING FOR OBESITY 4.2 (G0447) DOCUMENTATION OF FOLLOW-UP 2019-03-25 00:00:00 Julius Villela y 2.16.840.1.843093. PLAN FOR PATIENT WITH BMI 4.2 ABOVE NORMAL (G8417) INJECTION, 2019-03-25 00:00:00 Jeimy Villela 2.16.840. 1.449358. METHYLPREDNISOLONE ACETATE, 4.2 40 MG (Special Coverage Instructions Apply. See MCM: 2049) (J1030) TRANSVAGINAL ULTRASOUND OF 2017-05-18 00:00:00 Julius Villela y 2.16.840.1.216248. PELVIS (86691) 4.2 TRANSVAGINAL ULTRASOUND 2016-05-07 00:00:00 Marco Lindsey F 2.1 6.840.1.568451. (56514) 4.2 ULTRSND EXAM OF ABDOMEN, 2016-04-07 00:00:00 Eym Navarro 2.1 6.840.1.011904. COMPLETE (14651) : worsening 4.2 LUQ and LLQ abdominal pain MEDICAL SERVICES AFTER 2016-04-07 00:00:00 Emy Navarro 2.16. 840.1.225312. POSTED HOURS (38903) For all 4.2 Night Clinic Patients Delivery 2012-02-06 00:00:00 Natalie Duran 2.16.840. 1.699678. 4.2 ULTRSND OB >14 WK SINGLE 2011-11-20 00:00:00 Omid Cross 2.1 6.840.1.469374. FETUS (21121) 4.2 ULTRSND OB >14 WK SINGLE 2011-09-23 00:00:00 Omid Cross 2.1 6.840.1.490539. FETUS (43766) 4.2 MEDICAL SERVICES AFTER [facility] 2011-07-17 00:00:00 Babita Rodriguez 2.16.840.1.751391. (04795) 4.2 ULTRSND OB, TRANSVAGINAL 2011-07-08 00:00:00 Enard, December 2.1 6.840.1.200796. (12248) 4.2 IMMUNIZ ADMNIN, 1 VAC, 2011-07-02 00:00:00 Shahana Grant 2.16. 840.1.349172. SNGL/COMBO (98059) 4.2 MEDICAL SERVICES AFTER [facility] 2011-05-29 00:00:00 Shahana Grant 2 .16.840.1.858084. (87735) 4.2 ULTRASOUND, TRANSVAGINAL, 2010-12-09 00:00:00 Gómez Morales 2. 16.840.1.681562. NON-OBSTETRIC (81964) 4.2 Appendectomy Renee, Natalie 2.16.840.1.1138 83. 4.2 Pap Smear 2.16.840.1.94072 3. 4.2 section [facility] Plan of Care Planned Activity Planned Date Details Comments Source Diagnostic Test Pending 2022-01-03 11:17:11 HIV-1 AG W/HIV-1 & HIV- 2 AB (06838) [code = 44868] Diagnostic Test Pending 2022-01-03 11:17:11 Chlamydia/GC Amplification(APTIMA SWAB) (81844) [code = 64168] Diagnostic Test Pending 2022-01-03 11:17:11 RPR (RAPID PLASMA REAGI N) (88518) [code = 26761] Diagnostic Test Pending 2022-01-03 11:17:11 HIV-1 AG W/HIV-1 & HIV- 2 AB (58769) [code = 83999] Diagnostic Test Pending 2022-01-03 11:17:11 RPR (RAPID PLASMA REAGI N) (25304) [code = 24078] Diagnostic Test Pending 2022-01-03 11:17:11 HIV-1 AG W/HIV-1 & HIV- 2 AB (86496) [code = 04716] Diagnostic Test Pending 2022-01-03 11:17:11 RPR (RAPID PLASMA REAGI N) (77385) [code = 11650] Diagnostic Test Pending 2022-01-03 11:16:04 LIPID PANEL (84027) [co de = 69988] Diagnostic Test Pending 2022-01-03 11:16:04 LIPID PANEL (45611) [co de = 02407] Diagnostic Test Pending 2022-01-03 11:16:04 LIPID PANEL (97909) [co de = 98702] Diagnostic Test Pending 2022-01-03 11:15:55 COMPREHENSIVE METABOLIC PANEL (84133) [code = 26341] Diagnostic Test Pending 2022-01-03 11:15:55 COMPREHENSIVE METABOLIC PANEL (17132) [code = 86064] Diagnostic Test Pending 2022-01-03 11:15:55 COMPREHENSIVE METABOLIC PANEL (06367) [code = 92368] Diagnostic Test Pending 2016-05-07 16:19:25 *Lonestar urine pregnan cy (17318) [code = 66211] Diagnostic Test Pending 2016-05-07 16:19:25 *Lonestar urine pregnan cy (16767) [code = 90241] Diagnostic Test Pending 2016-05-07 16:19:25 *Lonestar urine pregnan cy (16011) [code = 56217] Diagnostic Test Pending 2016-05-07 15:57:50 *Lonestar urine pregnan cy (76938) [code = 77639] Diagnostic Test Pending 2016-05-07 15:57:50 *Lonestar urine pregnan cy (71627) [code = 12072] Diagnostic Test Pending 2016-05-07 15:57:50 *Lonestar urine pregnan cy (40193) [code = 98102] Diagnostic Test Pending 2016-04-07 20:13:58 URINE STEVE CULTURE-KIMBERLY COL COUNT (86981) [code = 83376] Diagnostic Test Pending 2016-04-07 20:13:58 URINE STEVE CULTURE-KIMBERLY COL COUNT (35315) [code = 42427] Diagnostic Test Pending 2016-04-07 20:13:58 URINE STEVE CULTURE-KIMBERLY COL COUNT (71249) [code = 68641] Diagnostic Test Pending 2016-04-07 19:44:20 *[place] UA (without microscopy) (15934) [code = 62668] Diagnostic Test Pending 2016-04-07 19:44:20 *[place] UA (without microscopy) (77546) [code = 02169] Diagnostic Test Pending 2016-04-07 19:44:20 *[place] UA (without microscopy) (78410) [code = 50594] Diagnostic Test Pending 2013-06-09 13:27:56 *Lonestar urine pregnan cy (75399) [code = 00312] Diagnostic Test Pending 2013-06-09 13:27:56 *Lonestar urine pregnan cy (15864) [code = 90646] Diagnostic Test Pending 2013-06-09 13:27:56 *Lonestar urine pregnan cy (14424) [code = 65754] Diagnostic Test Pending 2012-01-28 11:04:15 Protein,Total 24-hr Uri ne (83471) [code = 36906] Diagnostic Test Pending 2012-01-28 11:04:15 Protein,Total 24-hr Uri ne (83828) [code = 91894] Diagnostic Test Pending 2012-01-28 11:04:15 Protein,Total 24-hr Uri ne (31047) [code = 00589] Diagnostic Test Pending 2011-07-17 20:34:20 *[place] UA (without microscopy) (93081) [code = 31127] Diagnostic Test Pending 2011-07-17 20:34:20 *[place] UA (without microscopy) (10865) [code = 57514] Diagnostic Test Pending 2011-07-17 20:34:20 *[place] UA (without microscopy) (97263) [code = 30889] Diagnostic Test Pending 2010-12-09 13:29:59 *Lonestar urine pregnan cy (72843) [code = 49175] Diagnostic Test Pending 2010-12-09 13:29:59 *Lonestar urine pregnan cy (30713) [code = 57685] Diagnostic Test Pending 2010-12-09 13:29:59 *[place]estar urine pregnan cy (99626) [code = 42450] Diagnostic Test Pending 2010-12-09 13:29:49 URINALYSIS W/O MICROSCO PY (26106) [code = 75351] Diagnostic Test Pending 2010-12-09 13:29:49 URINALYSIS W/O MICROSCO PY (57346) [code = 87013] Diagnostic Test Pending 2010-12-09 13:29:49 URINALYSIS W/O MICROSCO PY (43337) [code = 81278] Encounters Start End Encounter Admission Attending Care Care Encounter Source Date/Time Date/Time Type Type Clinicians Facility Department ID 2022-07-12 Outpatient ED [facility] [id number] [place] 17:04:06 [id number] [facility] [id number] [place] 11:18:36 [id number] [facility] 2021-12-12 Outpatient [facility] [id number] [place] 09:10:33 [id number] [facility] 2021-11-30 Outpatient [facility] [id number] [place] 14:08:50 [id number] [facility] 2020-11-10 Inpatient [facility] [id number] [facility] 20:47:00 [id number] [facility] 2022-01-03 2022-01-06 Office 0 Smith [id number] 10:45:00 08:41:24 Visit 26 2022-01-03 2022-01-03 Outpatient Usama Tejada [facility] [id number] [place] 10:41:00 10:41:00 [id number] [facility] 2020-11-10 2020-11-11 Departed JAYCOB [facility] [id number] [place] 21:07:00 00:20:00 Emergency TELIZ [facility] [address] [facility] 2019-03-25 2019-03-25 Office 0 [place] [id number] 13:46:49 14:11:24 Visit 1 2017-06-01 2017-06-01 Office 0 [place] [id number] 08:25:52 10:49:50 Visit 9 2017-05-18 2017-05-18 Office 0 [place] [id number] 11:35:23 13:23:50 Visit 6 2016-05-07 2016-05-07 Office 0 [place] [id number] 15:38:00 16:21:20 Visit 1 2016-04-15 2016-04-15 Office 0 [place] [id number] 15:48:01 17:02:03 Visit 0 2016-04-11 2016-04-12 Outpatient [facility] [id number] Mem[place] 18:08:00 04:59:00 sonia Sauceda [address] 2016-04-11 2016-04-11 Outpatient PhysicianSONNY [id number] 13:08:00 23:59:00 Non 00 Associated 2016-04-07 2016-04-07 Office 0 [place] [id number] 19:30:42 20:25:04 Visit 4 2015-10-18 2015-10-18 [facility] [id number] [place] 16:03:00 18:27:00 Emergency r [place] [facility] [address] [facility] 2015-10-18 2015-10-18 Outpatient SONNY Cooley [facility] [id number] 10:03:00 12:27:00 Shaka [place] 00 2013-06-09 2013-06-09 Office 0 [place] [id number] 13:20:28 13:42:[address] 2012-02-12 2012-02-13 Nurse 0 [place] [id number] 09:37:45 08:34:[address] 2012-02-04 2012-02-05 Office 0 [place] [id number] 10:29:47 21:45:[address] 2012-01-28 2012-01-29 Office 0 [place] [id number] 09:36:49 09:49:[address] 2012-01-19 2012-01-19 Office 0 [place] [id number] 09:35:53 12:59:[address] 2012-01-05 2012-01-05 Office 0 [place] [id number] 09:34:35 10:24:[address] 2011-12-23 2011-12-24 Office 0 [place] [id number] 09:47:39 01:52:[address] 2011-12-12 2011-12-19 Office 0 [place] [id number] 13:15:43 02:44:[address] 2011-11-20 2011-11-22 Office 0 [place] [id number] 16:38:24 10:40:[address] 2011-10-23 2011-10-23 Office 0 [place] [id number] 13:37:20 16:23:[address] 2011-09-23 2011-09-25 Office 0 [place] [id number] 08:35:52 22:53:[address] 2011-08-27 2011-08-27 Office 0 [place] [id number] 09:23:59 10:42:17 Visit Family 7 [facility] 2011-08-07 2011-08-07 Office 0 [place] [id number] 13:36:04 17:18:33 Visit [facility] 9 [facility] 2011-07-29 2011-08-04 Office 0 [place] [id number] 15:36:52 11:02:11 Visit [facility] 1 [facility] 2011-07-17 2011-07-17 Office 0 [place] [id number] 20:08:41 20:56:03 Visit [facility] 2 [facility] 2011-07-08 2011-07-08 Office 0 [place] [id number] 09:10:50 12:46:28 Visit [facility] 7 [facility] 2011-07-02 2011-07-07 Office 0 [place] [id number] 11:43:33 19:30:20 Visit [facility] 1 [facility] 2011-06-26 2011-07-02 Office 0 [place] [id number] 14:13:38 11:30:59 Visit [facility] 9 [facility] 2011-06-12 2011-06-12 Results 0 [place] [id number] 11:08:04 11:09:17 notificati Family 4 on [facility] 2011-05-29 2011-05-29 Office 0 [place] [id number] 16:47:21 17:44:17 Visit [facility] 5 [facility] 2010-12-24 2011-01-14 Office 0 [place] [id number] 14:58:50 10:18:[address] 2010-12-02 2010-12-17 Office 0 [place] [id number] 13:34:26 13:29:03 Visit [facility] 9 [facility] 2000-12-23 2000-12-23 Office 0 INACTIVE - [id number] 14:58:10 15:00:17 Visit [facility] Results Test Description Test Time Test Comments Results Result Comments Source Chlamydia/GC Amplification(APTIMA SWAB) ([id number]) 2022-01-03 0 0:00:00 Test Item Value Reference Range Interpretation Comme nts CHLAMYDIA TRACHOMATIS RNA, TMA, NOT DETECTED N UROGENITAL (test code = 32327-5) NEISSERIA GONORRHOEAE RNA, TMA, NOT DETECTED N UROGENITAL (test code = 80389-1) [id number] (test code = 42088168) SEE NOTE N The analytical performance characteristics of thisassay, when used to test Shell rePath(TM) specimens have beendeterm ined by [employer]. Th e modifications havenot been cl eared or approved by the FDA. This a ssay hasbeen validated pursu ant to the CLIA regulations and isused for clinical purposes.For ad ditional information, please refer tohttps://educa tion.[employer]/faq/DGX602 (This link is being provided for in formation/educational purposes only.) Test Performed at:[facility] [id number] [place] [address] SUNNI SANCHEZ MD Chlamydia/GC Amplification(APTIMA SWAB) ([id number])2022-01-03 00:00:00 Test Item Value Reference Range Interpretation Comments CHLAMYDIA NOT DETECTED N TRACHOMATIS RNA, TMA, UROGENITAL (test code = 93006-2) NEISSERIA NOT DETECTED N GONORRHOEAE RNA, TMA, UROGENITAL (test code = 58308-6) 37360645 (test code SEE NOTE N The anal ytical = 92848355) performance characteristics of thisassay, when used to test SurePat h(TM) specimens have beendetermined by [employer]. The modifications h avenot been cleared or approved by the FDA. This assay hasb een validated pursu ant to the CLIA regula tions and isused for clinical purpos es.For additional information, pl ease refer tohttps://educa tion.[employer]/faq /NOT948(This li nk is being provided for information/edu cationa l purposes only .)Test Performed at:[facility] [id number] [place] [address] KELSEY KNOX MD *[facility] ([id number])2019-03-25 00:00:00 Test Item Value Reference Range Interpretation Comments STREPTOCOCCUS GRP A, INFCTS ANTIGN negative N (test code = 6556-5) *[facility] (24999)2019-03-25 00:00:00 Test Item Value Reference Range Interpretation Comments STREPTOCOCCUS GRP A, INFCTS ANTIGN negative N (test code = 6556-5) *[facility] (25594)2019-03-25 00:00:00 Test Item Value Reference Range Interpretation Comments STREPTOCOCCUS GRP A, INFCTS ANTIGN negative N (test code = 6556-5) *[facility] (40566)2017-05-18 00:00:00 Test Item Value Reference Range Interpretation Comments *[facility] (test code Negative N = *[facility] ) *[facility] (without microscopy) (39287)2017-05-18 00:00:00 Test Item Value Reference Range Interpretation Comments UA - CLARITY L (test code = UA - Clear N CLARITY L) UA - LEUKOCYTE ESTERASE L (test Negative N code = UA - LEUKOCYTE ESTERASE L) UA - PH L (test code = UA - PH L) 6.0 N PRO (test code = PRO) Negative N URINE UROBILINOGEN SEMIQUAN L 0.2 E.U./dl 0.2-0.2 N (test code = URINE UROBILINOGEN SEMIQUAN L) UA - NITRITE L (test code = UA - Negative N NITRITE L) UA - COLOR L (test code = UA - Yellow N COLOR L) GLU (test code = GLU) Negative N UA - BILIRUBIN L (test code = UA Negative N - BILIRUBIN L) KET (test code = KET) Negative N S G (test code = S G) 1.020 N UA - BLOOD L (test code = UA - Negative N BLOOD L) *[facility] ([id number])2017-05-18 00:00:00 Test Item Value Reference Range Interpretation Comments *[facility] (test code Negative N = *[facility] ) *[facility] (without microscopy) ([id number])2017-05-18 00:00:00 Test Item Value Reference Range Interpretation Comments UA - CLARITY L (test code = UA - Clear N CLARITY L) UA - LEUKOCYTE ESTERASE L (test Negative N code = UA - LEUKOCYTE ESTERASE L) UA - NITRITE L (test code = UA - Negative N NITRITE L) URINE UROBILINOGEN SEMIQUAN L 0.2 E.U./dl 0.2-0.2 N (test code = URINE UROBILINOGEN SEMIQUAN L) PRO (test code = PRO) Negative N UA - PH L (test code = UA - PH L) 6.0 N UA - BLOOD L (test code = UA - Negative N BLOOD L) S G (test code = S G) 1.020 N KET (test code = KET) Negative N UA - BILIRUBIN L (test code = UA Negative N - BILIRUBIN L) GLU (test code = GLU) Negative N UA - COLOR L (test code = UA - Yellow N COLOR L) *[facility] ([id number])2017-05-18 00:00:00 Test Item Value Reference Range Interpretation Comments *[facility] (test code Negative N = *[facility] ) *[facility] (without microscopy) ([id number])2017-05-18 00:00:00 Test Item Value Reference Range Interpretation Comments UA - CLARITY L (test code = UA - Clear N CLARITY L) UA - LEUKOCYTE ESTERASE L (test Negative N code = UA - LEUKOCYTE ESTERASE L) UA - PH L (test code = UA - PH L) 6.0 N PRO (test code = PRO) Negative N URINE UROBILINOGEN SEMIQUAN L 0.2 E.U./dl 0.2-0.2 N (test code = URINE UROBILINOGEN SEMIQUAN L) UA - NITRITE L (test code = UA - Negative N NITRITE L) UA - COLOR L (test code = UA - Yellow N COLOR L) GLU (test code = GLU) Negative N UA - BILIRUBIN L (test code = UA Negative N - BILIRUBIN L) KET (test code = KET) Negative N S G (test code = S G) 1.020 N UA - BLOOD L (test code = UA - Negative N BLOOD L) Chlamydia/GC Amplification(APTIMA SWAB) (83046)2016-05-07 00:00:00 Test Item Value Reference Range Interpretation Comments CHLAMYDIA NOT DETECTED N TRACHOMATIS RNA, TMA (test code = 69740-5) NEISSERIA NOT DETECTED N GONORRHOEAE RNA, TMA (test code = 45260-6) [id number] (test code SEE NOTE N This neo t was = [id number]) performed using the APTIMA COMBO2 Assay([employer]The chris tical performance characteristics of thisassay, when used to test SurePat h specimens haveb een determined by [employer].Neo t Performed at:[facility] [id number] [place] [address] MADISON MARIN M.D. Chlamydia/GC Amplification(APTIMA SWAB) ([id number])2016-05-07 00:00:00 Test Item Value Reference Range Interpretation Comments CHLAMYDIA NOT DETECTED N TRACHOMATIS RNA, TMA (test code = 90729-6) NEISSERIA NOT DETECTED N GONORRHOEAE RNA, TMA (test code = 91908-1) [id number] (test code SEE NOTE N This neo t was = [id number]) performed using the APTIMA COMBO2 Assay([employer]The chris tical performance characteristics of thisassay, when used to test SurePat h specimens haveb een determined by [facility].Neo t Performed at:[facility] [address] [address] MADISON MARIN M.D. Chlamydia/GC Amplification(APTIMA SWAB) ([id number])2016-05-07 00:00:00 Test Item Value Reference Range Interpretation Comments CHLAMYDIA NOT DETECTED N TRACHOMATIS RNA, TMA (test code = 86558-7) NEISSERIA NOT DETECTED N GONORRHOEAE RNA, TMA (test code = 26248-2) [id number] (test code SEE NOTE N This neo t was = [id number]) performed using the APTIMA COMBO2 Assay([employer]The chris tical performance characteristics of thisassay, when used to test SurePat h specimens haveb een determined by [facility].Neo t Performed at:[facility] [id number] [place] [address] MADISON MARIN M.D. *[facility] ([id number])2016-04-15 00:00:00 Test Item Value Reference Range Interpretation Comments *[facility] (test code Negative N = *[facility] ) *[facility] (without microscopy) ([id number])2016-04-15 00:00:00 Test Item Value Reference Range Interpretation Comments UA - CLARITY L (test code = UA - clear N CLARITY L) UA - LEUKOCYTE ESTERASE L (test Trace N code = UA - LEUKOCYTE ESTERASE L) UA - PH L (test code = UA - PH L) 6.0 N PRO (test code = PRO) Negative N URINE UROBILINOGEN SEMIQUAN L 0.2 E.U./dl 0.2-0.2 N (test code = URINE UROBILINOGEN SEMIQUAN L) UA - NITRITE L (test code = UA - negative N NITRITE L) UA - COLOR L (test code = UA - Yellow N COLOR L) GLU (test code = GLU) Negative N UA - BILIRUBIN L (test code = UA Negative N - BILIRUBIN L) KET (test code = KET) negative N S G (test code = S G) 1.020 N UA - BLOOD L (test code = UA - Positive A BLOOD L) *[facility] ([id number])2016-04-15 00:00:00 Test Item Value Reference Range Interpretation Comments *[facility] (test code Negative N = *[facility] ) *[facility] (without microscopy) ([id number])2016-04-15 00:00:00 Test Item Value Reference Range Interpretation Comments UA - CLARITY L (test code = UA - clear N CLARITY L) UA - LEUKOCYTE ESTERASE L (test Trace N code = UA - LEUKOCYTE ESTERASE L) UA - NITRITE L (test code = UA - negative N NITRITE L) URINE UROBILINOGEN SEMIQUAN L 0.2 E.U./dl 0.2-0.2 N (test code = URINE UROBILINOGEN SEMIQUAN L) PRO (test code = PRO) Negative N UA - PH L (test code = UA - PH L) 6.0 N UA - BLOOD L (test code = UA - Positive A BLOOD L) S G (test code = S G) 1.020 N KET (test code = KET) negative N UA - BILIRUBIN L (test code = UA Negative N - BILIRUBIN L) GLU (test code = GLU) Negative N UA - COLOR L (test code = UA - Yellow N COLOR L) *[facility] ([id number])2016-04-15 00:00:00 Test Item Value Reference Range Interpretation Comments *[facility] (test code Negative N = *[facility] ) *[facility] (without microscopy) ([id number])2016-04-15 00:00:00 Test Item Value Reference Range Interpretation Comments UA - CLARITY L (test code = UA - clear N CLARITY L) UA - LEUKOCYTE ESTERASE L (test Trace N code = UA - LEUKOCYTE ESTERASE L) UA - PH L (test code = UA - PH L) 6.0 N PRO (test code = PRO) Negative N URINE UROBILINOGEN SEMIQUAN L 0.2 E.U./dl 0.2-0.2 N (test code = URINE UROBILINOGEN SEMIQUAN L) UA - NITRITE L (test code = UA - negative N NITRITE L) UA - COLOR L (test code = UA - Yellow N COLOR L) GLU (test code = GLU) Negative N UA - BILIRUBIN L (test code = UA Negative N - BILIRUBIN L) KET (test code = KET) negative N S G (test code = S G) 1.020 N UA - BLOOD L (test code = UA - Positive A BLOOD L) *[facility] ([id number])2012-02-04 00:00:00 Test Item Value Reference Range Interpretation Comments UA - GLUCOSE (test code = 5792-7) Negative N UA - PROTEIN (test code = 20578-2) 300 (3+) A *[facility] ([id number])2012-02-04 00:00:00 Test Item Value Reference Range Interpretation Comments UA - GLUCOSE (test code = 5792-7) Negative N UA - PROTEIN (test code = 29518-4) 300 (3+) A *[facility] ([id number])2012-02-04 00:00:00 Test Item Value Reference Range Interpretation Comments UA - GLUCOSE (test code = 5792-7) Negative N UA - PROTEIN (test code = 04598-8) 300 (3+) A *[facility] ([id number])2012-01-28 00:00:00 Test Item Value Reference Range Interpretation Comments UA - GLUCOSE (test code = 5792-7) Negative N UA - PROTEIN (test code = 44298-9) 300 (3+) A STREP GP B CULT/DNA PROBE ([id number])2012-01-28 00:00:00 Test Item Value Reference Range Interpretation Comments Strep Gp B Negative N Penicillin G, a mpicillin, or Cult/DNA Probe cefazolin are indicated for (test code = intrapartumprop hylaxis of Strep Gp B group B Strep (GBS) Cult/DNA colonization. Probe) Reflexsusceptib ility testing should be perfo rmed prior to use of clindamy cinonly on GBS isolates from penicillin-bing rgic women who are considereda high risk for anaphylaxis. Tr eatment with vancomycin with outadditional testing is alicia anted if resistance to c lindamycin is noted.([facility] Guid satnam, [place], 2009) *[facility] ([id number])2012-01-28 00:00:00 Test Item Value Reference Range Interpretation Comments UA - GLUCOSE (test code = 5792-7) Negative N UA - PROTEIN (test code = 42798-6) 300 (3+) A STREP GP B CULT/DNA PROBE ([id number])2012-01-28 00:00:00 Test Item Value Reference Range Interpretation Comments Strep Gp B Negative N Penicillin G, a mpicillin, or Cult/DNA Probe cefazolin are indicated for (test code = intrapartumprop hylaxis of Strep Gp B group B Strep (GBS) Cult/DNA colonization. Probe) Reflexsusceptib ility testing should be perfo rmed prior to use of clindamy cinonly on GBS isolates from penicillin-bing rgic women who are considereda high risk for anaphylaxis. Tr eatment with vancomycin with outadditional testing is alicia anted if resistance to c lindamycin is noted.([facility] Guid satnam, WR, 2009) *[facility] ([id number])2012-01-28 00:00:00 Test Item Value Reference Range Interpretation Comments UA - GLUCOSE (test code = 5792-7) Negative N UA - PROTEIN (test code = 89479-8) 300 (3+) A STREP GP B CULT/DNA PROBE (48521)2012-01-28 00:00:00 Test Item Value Reference Range Interpretation Comments Strep Gp B Negative N Penicillin G, a mpicillin, or Cult/DNA Probe cefazolin are indicated for (test code = intrapartumprop hylaxis of Strep Gp B group B Strep (GBS) Cult/DNA colonization. Probe) Reflexsusceptib ility testing should be perfo rmed prior to use of clindamy cinonly on GBS isolates from penicillin-bing rgic women who are considereda high risk for anaphylaxis. Tr eatment with vancomycin with outadditional testing is alicia anted if resistance to c lindamycin is noted.([facility] Guid satnam, MMWR, 2009) *[facility] ([id number])2012-01-19 00:00:00 Test Item Value Reference Range Interpretation Comments UA - GLUCOSE (test code = 5792-7) Negative N UA - PROTEIN (test code = 54503-0) 100 (2+) A *[facility] (15230)2012-01-19 00:00:00 Test Item Value Reference Range Interpretation Comments UA - GLUCOSE (test code = 5792-7) Negative N UA - PROTEIN (test code = 30659-5) 100 (2+) A *[facility] (39305)2012-01-19 00:00:00 Test Item Value Reference Range Interpretation Comments UA - GLUCOSE (test code = 5792-7) Negative N UA - PROTEIN (test code = 98932-2) 100 (2+) A *[facility] (04406)2012-01-05 00:00:00 Test Item Value Reference Range Interpretation Comments UA - GLUCOSE (test code = 5792-7) Negative N UA - PROTEIN (test code = 01602-5) 100 (2+) A HIV-1 ANTIBODY (28215)2012-01-05 00:00:00 Test Item Value Reference Range Interpretation Comments HIV 1/O/2 <1.00 N Index Value: Sp ecimen Abs-Index Value reactivity r elative to (test code = the negative cu toff. 17159-8) HIV 1/O/2 Abs, Non Reactive N Qual (test code = 25864-1) HIV-2 ANTIBODY ([id number])2012-01-05 00:00:00 Test Item Value Reference Range Interpretation Comments HIV-2 Ab-O.D. Negative N Interpretation : A repeatedly Ratio (test reactive HIV-2 result may code = HIV-2 indicateinfecti on with HIV-2 Ab-O.D. Ratio) virus. Howeve r, HIV1 positive patients (50-90 %)may also react in HIV-2 EIA. Reactive results should be investigatedby supplemental tests. Positive HIV-2 results should be consi deredindicative of infection if HIV-1 has been ruled out with negativeHIV-1 testing, patien t has epidemiological risk factors for HIV-2, ands upplemental tests such as H IV-2 Immunoblot (Investigationa l use only)show the presence of HIV-2 specific viral bands. CBC, PLATELETS & AUT DIFF (70226)2012-01-05 00:00:00 Test Item Value Reference Range Interpretation Comments WBC (test code = 6690-2) 9.9 {x10E3/uL} 4.0-9.1 A RBC (test code = 789-8) 3.65 {x10E6/uL} 3.91-5.26 A Hemoglobin (test code = 10.6 g/dL 11.7-15.0 A 718-7) Hematocrit (test code = 32.6 % 34.8-43.5 A 4544-3) MCV (test code = 787-2) 89 fL 80-92 N MCH (test code = 785-6) 29.0 pg 27.3-31.7 N MCHC (test code = 786-4) 32.5 g/dL 33.0-36.0 A RDW (test code = 788-0) 14.3 % 12.3-14.5 N Platelets (test code = 777-3) 347 {x10E3/uL} 150-349 N Neutrophils (test code = 62 % 40-70 N 770-8) Lymphs (test code = 736-9) 24 % 20-47 N Monocytes(Absolute) (test 0.8 {x10E3/uL} 0.1-0.7 A code = 5905-5) Eos (test code = 713-8) 6 % 0-4 A Basos (test code = 706-2) 0 % 0-2 N Neutrophils (Absolute) (test 6.1 {x10E3/uL} 1.5-5.6 A code = Neutrophils (Absolute)) Lymphs (Absolute) (test code 2.3 {x10E3/uL} 1.1-3.1 N = Lymphs (Absolute)) Eos (Absolute) (test code = 0.6 {x10E3/uL} 0.0-0.4 A Eos (Absolute)) Baso (Absolute) (test code = 0.0 {x10E3/uL} 0.0-0.3 N Baso (Absolute)) Immature Granulocytes (test 0 % 0-2 N code = Immature Granulocytes) Immature Grans (Abs) (test 0.0 {x10E3/uL} 0.0-0.1 N code = Immature Grans (Abs)) *[facility] ([id number])2012-01-05 00:00:00 Test Item Value Reference Range Interpretation Comments UA - GLUCOSE (test code = 5792-7) Negative N UA - PROTEIN (test code = 17097-4) 100 (2+) A HIV-1 ANTIBODY ([id number])2012-01-05 00:00:00 Test Item Value Reference Range Interpretation Comments HIV 1/O/2 <1.00 N Index Value: Sp ecimen Abs-Index Value reactivity r elative to (test code = the negative cu toff. 81157-3) HIV 1/O/2 Abs, Non Reactive N Qual (test code = 08896-2) HIV-2 ANTIBODY (54934)2012-01-05 00:00:00 Test Item Value Reference Range Interpretation Comments HIV-2 Ab-O.D. Negative N Interpretation : A repeatedly Ratio (test reactive HIV-2 result may code = HIV-2 indicateinfecti on with HIV-2 Ab-O.D. Ratio) virus. Howeve r, HIV1 positive patients (50-90 %)may also react in HIV-2 EIA. Reactive results should be investigatedby supplemental tests. Positive HIV-2 results should be consi deredindicative of infection if HIV-1 has been ruled out with negativeHIV-1 testing, patien t has epidemiological risk factors for HIV-2, ands upplemental tests such as H IV-2 Immunoblot (Investigationa l use only)show the presence of HIV-2 specific viral bands. CBC, PLATELETS & AUT DIFF (07583)2012-01-05 00:00:00 Test Item Value Reference Range Interpretation Comments WBC (test code = 6690-2) 9.9 {x10E3/uL} 4.0-9.1 A RBC (test code = 789-8) 3.65 {x10E6/uL} 3.91-5.26 A Hemoglobin (test code = 10.6 g/dL 11.7-15.0 A 718-7) Hematocrit (test code = 32.6 % 34.8-43.5 A 4544-3) MCV (test code = 787-2) 89 fL 80-92 N MCH (test code = 785-6) 29.0 pg 27.3-31.7 N MCHC (test code = 786-4) 32.5 g/dL 33.0-36.0 A RDW (test code = 788-0) 14.3 % 12.3-14.5 N Platelets (test code = 777-3) 347 {x10E3/uL} 150-349 N Neutrophils (test code = 62 % 40-70 N 770-8) Lymphs (test code = 736-9) 24 % 20-47 N Monocytes(Absolute) (test 0.8 {x10E3/uL} 0.1-0.7 A code = 5905-5) Eos (test code = 713-8) 6 % 0-4 A Basos (test code = 706-2) 0 % 0-2 N Neutrophils (Absolute) (test 6.1 {x10E3/uL} 1.5-5.6 A code = Neutrophils (Absolute)) Lymphs (Absolute) (test code 2.3 {x10E3/uL} 1.1-3.1 N = Lymphs (Absolute)) Eos (Absolute) (test code = 0.6 {x10E3/uL} 0.0-0.4 A Eos (Absolute)) Baso (Absolute) (test code = 0.0 {x10E3/uL} 0.0-0.3 N Baso (Absolute)) Immature Granulocytes (test 0 % 0-2 N code = Immature Granulocytes) Immature Grans (Abs) (test 0.0 {x10E3/uL} 0.0-0.1 N code = Immature Grans (Abs)) *[facility] ([id number])2012-01-05 00:00:00 Test Item Value Reference Range Interpretation Comments UA - GLUCOSE (test code = 5792-7) Negative N UA - PROTEIN (test code = 29895-9) 100 (2+) A HIV-1 ANTIBODY (07803)2012-01-05 00:00:00 Test Item Value Reference Range Interpretation Comments HIV 1/O/2 <1.00 N Index Value: Sp ecimen Abs-Index Value reactivity r elative to (test code = the negative cu toff. 51264-2) HIV 1/O/2 Abs, Non Reactive N Qual (test code = 04620-6) HIV-2 ANTIBODY (33442)2012-01-05 00:00:00 Test Item Value Reference Range Interpretation Comments HIV-2 Ab-O.D. Negative N Interpretation : A repeatedly Ratio (test reactive HIV-2 result may code = HIV-2 indicateinfecti on with HIV-2 Ab-O.D. Ratio) virus. Howeve r, HIV1 positive patients (50-90 %)may also react in HIV-2 EIA. Reactive results should be investigatedby supplemental tests. Positive HIV-2 results should be consi deredindicative of infection if HIV-1 has been ruled out with negativeHIV-1 testing, patiagustin t has epidemiological risk factors for HIV-2, ands upplemental tests such as H IV-2 Immunoblot (Investigationa l use only)show the presence of HIV-2 specific viral bands. CBC, PLATELETS & AUT DIFF (50920)2012-01-05 00:00:00 Test Item Value Reference Range Interpretation Comments WBC (test code = 6690-2) 9.9 {x10E3/uL} 4.0-9.1 A RBC (test code = 789-8) 3.65 {x10E6/uL} 3.91-5.26 A Hemoglobin (test code = 10.6 g/dL 11.7-15.0 A 718-7) Hematocrit (test code = 32.6 % 34.8-43.5 A 4544-3) MCV (test code = 787-2) 89 fL 80-92 N MCH (test code = 785-6) 29.0 pg 27.3-31.7 N MCHC (test code = 786-4) 32.5 g/dL 33.0-36.0 A RDW (test code = 788-0) 14.3 % 12.3-14.5 N Platelets (test code = 777-3) 347 {x10E3/uL} 150-349 N Neutrophils (test code = 62 % 40-70 N 770-8) Lymphs (test code = 736-9) 24 % 20-47 N Monocytes(Absolute) (test 0.8 {x10E3/uL} 0.1-0.7 A code = 5905-5) Eos (test code = 713-8) 6 % 0-4 A Basos (test code = 706-2) 0 % 0-2 N Neutrophils (Absolute) (test 6.1 {x10E3/uL} 1.5-5.6 A code = Neutrophils (Absolute)) Lymphs (Absolute) (test code 2.3 {x10E3/uL} 1.1-3.1 N = Lymphs (Absolute)) Eos (Absolute) (test code = 0.6 {x10E3/uL} 0.0-0.4 A Eos (Absolute)) Baso (Absolute) (test code = 0.0 {x10E3/uL} 0.0-0.3 N Baso (Absolute)) Immature Granulocytes (test 0 % 0-2 N code = Immature Granulocytes) Immature Grans (Abs) (test 0.0 {x10E3/uL} 0.0-0.1 N code = Immature Grans (Abs)) *[facility] ([id number])2011-12-23 00:00:00 Test Item Value Reference Range Interpretation Comments UA - GLUCOSE (test code = 5792-7) Negative N UA - PROTEIN (test code = 01675-1) Trace N *[facility] ([id number])2011-12-23 00:00:00 Test Item Value Reference Range Interpretation Comments UA - GLUCOSE (test code = 5792-7) Negative N UA - PROTEIN (test code = 10924-6) Trace N *[facility] ([id number])2011-12-23 00:00:00 Test Item Value Reference Range Interpretation Comments UA - GLUCOSE (test code = 5792-7) Negative N UA - PROTEIN (test code = 71091-4) Trace N PROTEIN, TOTAL, QUANTITATIVE 24 HOUR URINE ([id number])2011-12-15 00:00:00 Test Item Value Reference Range Interpretation Comments Protein,Total,Urine (test 4.1 mg/dL 0.0-15.0 N code = 2888-6) Prot,24hr calculated (test 82.0 {mg/24 hr} 30.0-150.0 N code = 2889-4) PROTEIN, TOTAL, QUANTITATIVE 24 HOUR URINE ([id number])2011-12-15 00:00:00 Test Item Value Reference Range Interpretation Comments Protein,Total,Urine (test 4.1 mg/dL 0.0-15.0 N code = 2888-6) Prot,24hr calculated (test 82.0 {mg/24 hr} 30.0-150.0 N code = 2889-4) PROTEIN, TOTAL, QUANTITATIVE 24 HOUR URINE ([id number])2011-12-15 00:00:00 Test Item Value Reference Range Interpretation Comments Protein,Total,Urine (test 4.1 mg/dL 0.0-15.0 N code = 2888-6) Prot,24hr calculated (test 82.0 {mg/24 hr} 30.0-150.0 N code = 2889-4) GLUCOSE TOLERANCE TEST (GTT) ([id number])2011-12-12 00:00:00 Test Item Value Reference Range Interpretation Comments Glucose, Fasting (test code = 80 mg/dL 65-99 N Glucose, Fasting) Glucose, 1 hour (test code = 87 mg/dL 65-199 N Glucose, 1 hour) Glucose, 2 hour (test code = 105 mg/dL 65-139 N Glucose, 2 hour) Glucose, 3 hour (test code = 80 mg/dL 65-109 N Glucose, 3 hour) *[facility] ([id number])2011-12-12 00:00:00 Test Item Value Reference Range Interpretation Comments UA - GLUCOSE (test code = 5792-7) Negative N UA - PROTEIN (test code = 97129-9) 300 (3+) A METABOLIC PANEL, COMPREHENSIVE (28229)2011-12-12 00:00:00 Test Item Value Reference Range Interpretation Comments Glucose, Serum (test code = 75 mg/dL 65-99 N 2345-7) BUN (test code = 3094-0) 7 mg/dL 5-18 N Creatinine, Serum (test code = 0.39 mg/dL 0.57-1.00 A 2160-0) BUN/Creatinine Ratio (test code = 18 9-25 N 3097-3) Sodium, Serum (test code = 2951-2) 135 mmol/L 134-144 N Potassium, Serum (test code = 4.3 mmol/L 3.5-5.2 N 2823-3) Chloride, Serum (test code = 101 mmol/L 97-108 N 2075-0) Carbon Dioxide, Total (test code = 20 mmol/L 20-32 N 2027-9) Calcium, Serum (test code = 8.9 mg/dL 8.9-10.4 N 45511-2) Protein, Total, Serum (test code = 6.3 g/dL 6.0-8.5 N 2885-2) Albumin, Serum (test code = 3.2 g/dL 3.5-5.5 A 1751-7) Globulin, Total (test code = 3.1 g/dL 1.5-4.5 N Globulin, Total) A/G Ratio (test code = 1759-0) 1.0 1.1-2.5 A Bilirubin, Total (test code = 0.2 mg/dL 0.0-1.2 N 1974-2) Alkaline Phosphatase, S (test code 90 [iU]/L 45-300 N = 6768-6) AST (SGOT) (test code = 1920-8) 13 [iU]/L 0-40 N ALT (SGPT) (test code = 1742-6) 16 [iU]/L 0-40 N CBC, PLATELETS & AUT DIFF ([id number])2011-12-12 00:00:00 Test Item Value Reference Range Interpretation Comments WBC (test code = 6690-2) 9.6 {x10E3/uL} 4.0-9.1 A RBC (test code = 789-8) 3.47 {x10E6/uL} 3.91-5.26 A Hemoglobin (test code = 10.5 g/dL 11.7-15.0 A 718-7) Hematocrit (test code = 31.0 % 34.8-43.5 A 4544-3) MCV (test code = 787-2) 89 fL 80-92 N MCH (test code = 785-6) 30.3 pg 27.3-31.7 N MCHC (test code = 786-4) 33.9 g/dL 33.0-36.0 N RDW (test code = 788-0) 14.0 % 12.3-14.5 N Platelets (test code = 777-3) 321 {x10E3/uL} 150-349 N Neutrophils (test code = 68 % 40-70 N 770-8) Lymphs (test code = 736-9) 18 % 20-47 A Monocytes(Absolute) (test 0.8 {x10E3/uL} 0.1-0.7 A code = 5905-5) Eos (test code = 713-8) 6 % 0-4 A Basos (test code = 706-2) 0 % 0-2 N Neutrophils (Absolute) (test 6.5 {x10E3/uL} 1.5-5.6 A code = Neutrophils (Absolute)) Lymphs (Absolute) (test code 1.7 {x10E3/uL} 1.1-3.1 N = Lymphs (Absolute)) Eos (Absolute) (test code = 0.5 {x10E3/uL} 0.0-0.4 A Eos (Absolute)) Baso (Absolute) (test code = 0.0 {x10E3/uL} 0.0-0.3 N Baso (Absolute)) Immature Granulocytes (test 0 % 0-2 N code = Immature Granulocytes) Immature Grans (Abs) (test 0.0 {x10E3/uL} 0.0-0.1 N code = Immature Grans (Abs)) GLUCOSE TOLERANCE TEST (GTT) ([id number])2011-12-12 00:00:00 Test Item Value Reference Range Interpretation Comments Glucose, Fasting (test code = 80 mg/dL 65-99 N Glucose, Fasting) Glucose, 1 hour (test code = 87 mg/dL 65-199 N Glucose, 1 hour) Glucose, 2 hour (test code = 105 mg/dL 65-139 N Glucose, 2 hour) Glucose, 3 hour (test code = 80 mg/dL 65-109 N Glucose, 3 hour) *[facility] - [facility] ([id number])2011-12-12 00:00:00 Test Item Value Reference Range Interpretation Comments UA - GLUCOSE (test code = 5792-7) Negative N UA - PROTEIN (test code = 23100-7) 300 (3+) A METABOLIC PANEL, COMPREHENSIVE ([id number])2011-12-12 00:00:00 Test Item Value Reference Range Interpretation Comments Glucose, Serum (test code = 75 mg/dL 65-99 N 2345-7) BUN (test code = 3094-0) 7 mg/dL 5-18 N Creatinine, Serum (test code = 0.39 mg/dL 0.57-1.00 A 2160-0) BUN/Creatinine Ratio (test code = 18 9-25 N 3097-3) Sodium, Serum (test code = 2951-2) 135 mmol/L 134-144 N Potassium, Serum (test code = 4.3 mmol/L 3.5-5.2 N 2823-3) Chloride, Serum (test code = 101 mmol/L 97-108 N 2075-0) Carbon Dioxide, Total (test code = 20 mmol/L 20-32 N 2028-9) Calcium, Serum (test code = 8.9 mg/dL 8.9-10.4 N 74482-2) Protein, Total, Serum (test code = 6.3 g/dL 6.0-8.5 N 2885-2) Albumin, Serum (test code = 3.2 g/dL 3.5-5.5 A 1751-7) Globulin, Total (test code = 3.1 g/dL 1.5-4.5 N Globulin, Total) A/G Ratio (test code = 1759-0) 1.0 1.1-2.5 A Bilirubin, Total (test code = 0.2 mg/dL 0.0-1.2 N 1975-2) Alkaline Phosphatase, S (test code 90 [iU]/L 45-300 N = 6768-6) AST (SGOT) (test code = 1920-8) 13 [iU]/L 0-40 N ALT (SGPT) (test code = 1742-6) 16 [iU]/L 0-40 N CBC, PLATELETS & AUT DIFF ([id number])2011-12-12 00:00:00 Test Item Value Reference Range Interpretation Comments WBC (test code = 6690-2) 9.6 {x10E3/uL} 4.0-9.1 A RBC (test code = 789-8) 3.47 {x10E6/uL} 3.91-5.26 A Hemoglobin (test code = 10.5 g/dL 11.7-15.0 A 718-7) Hematocrit (test code = 31.0 % 34.8-43.5 A 4544-3) MCV (test code = 787-2) 89 fL 80-92 N MCH (test code = 785-6) 30.3 pg 27.3-31.7 N MCHC (test code = 786-4) 33.9 g/dL 33.0-36.0 N RDW (test code = 788-0) 14.0 % 12.3-14.5 N Platelets (test code = 777-3) 321 {x10E3/uL} 150-349 N Neutrophils (test code = 68 % 40-70 N 770-8) Lymphs (test code = 736-9) 18 % 20-47 A Monocytes(Absolute) (test 0.8 {x10E3/uL} 0.1-0.7 A code = 5905-5) Eos (test code = 713-8) 6 % 0-4 A Basos (test code = 706-2) 0 % 0-2 N Neutrophils (Absolute) (test 6.5 {x10E3/uL} 1.5-5.6 A code = Neutrophils (Absolute)) Lymphs (Absolute) (test code 1.7 {x10E3/uL} 1.1-3.1 N = Lymphs (Absolute)) Eos (Absolute) (test code = 0.5 {x10E3/uL} 0.0-0.4 A Eos (Absolute)) Baso (Absolute) (test code = 0.0 {x10E3/uL} 0.0-0.3 N Baso (Absolute)) Immature Granulocytes (test 0 % 0-2 N code = Immature Granulocytes) Immature Grans (Abs) (test 0.0 {x10E3/uL} 0.0-0.1 N code = Immature Grans (Abs)) GLUCOSE TOLERANCE TEST (GTT) ([id number])2011-12-12 00:00:00 Test Item Value Reference Range Interpretation Comments Glucose, Fasting (test code = 80 mg/dL 65-99 N Glucose, Fasting) Glucose, 1 hour (test code = 87 mg/dL 65-199 N Glucose, 1 hour) Glucose, 2 hour (test code = 105 mg/dL 65-139 N Glucose, 2 hour) Glucose, 3 hour (test code = 80 mg/dL 65-109 N Glucose, 3 hour) *[facility] ([id number])2011-12-12 00:00:00 Test Item Value Reference Range Interpretation Comments UA - GLUCOSE (test code = 5792-7) Negative N UA - PROTEIN (test code = 50413-4) 300 (3+) A METABOLIC PANEL, COMPREHENSIVE ([id number])2011-12-12 00:00:00 Test Item Value Reference Range Interpretation Comments Glucose, Serum (test code = 75 mg/dL 65-99 N 2345-7) BUN (test code = 3094-0) 7 mg/dL 5-18 N Creatinine, Serum (test code = 0.39 mg/dL 0.57-1.00 A 2160-0) BUN/Creatinine Ratio (test code = 18 9-25 N 3097-3) Sodium, Serum (test code = 2951-2) 135 mmol/L 134-144 N Potassium, Serum (test code = 4.3 mmol/L 3.5-5.2 N 2823-3) Chloride, Serum (test code = 101 mmol/L 97-108 N 2075-0) Carbon Dioxide, Total (test code = 20 mmol/L 20-32 N 8-9) Calcium, Serum (test code = 8.9 mg/dL 8.9-10.4 N 08659-4) Protein, Total, Serum (test code = 6.3 g/dL 6.0-8.5 N 2885-2) Albumin, Serum (test code = 3.2 g/dL 3.5-5.5 A 1751-7) Globulin, Total (test code = 3.1 g/dL 1.5-4.5 N Globulin, Total) A/G Ratio (test code = 1759-0) 1.0 1.1-2.5 A Bilirubin, Total (test code = 0.2 mg/dL 0.0-1.2 N 1975-2) Alkaline Phosphatase, S (test code 90 [iU]/L 45-300 N = 6768-6) AST (SGOT) (test code = 1920-8) 13 [iU]/L 0-40 N ALT (SGPT) (test code = 1742-6) 16 [iU]/L 0-40 N CBC, PLATELETS & AUT DIFF ([id number])2011-12-12 00:00:00 Test Item Value Reference Range Interpretation Comments WBC (test code = 6690-2) 9.6 {x10E3/uL} 4.0-9.1 A RBC (test code = 789-8) 3.47 {x10E6/uL} 3.91-5.26 A Hemoglobin (test code = 10.5 g/dL 11.7-15.0 A 718-7) Hematocrit (test code = 31.0 % 34.8-43.5 A 4544-3) MCV (test code = 787-2) 89 fL 80-92 N MCH (test code = 785-6) 30.3 pg 27.3-31.7 N MCHC (test code = 786-4) 33.9 g/dL 33.0-36.0 N RDW (test code = 788-0) 14.0 % 12.3-14.5 N Platelets (test code = 777-3) 321 {x10E3/uL} 150-349 N Neutrophils (test code = 68 % 40-70 N 770-8) Lymphs (test code = 736-9) 18 % 20-47 A Monocytes(Absolute) (test 0.8 {x10E3/uL} 0.1-0.7 A code = 5905-5) Eos (test code = 713-8) 6 % 0-4 A Basos (test code = 706-2) 0 % 0-2 N Neutrophils (Absolute) (test 6.5 {x10E3/uL} 1.5-5.6 A code = Neutrophils (Absolute)) Lymphs (Absolute) (test code 1.7 {x10E3/uL} 1.1-3.1 N = Lymphs (Absolute)) Eos (Absolute) (test code = 0.5 {x10E3/uL} 0.0-0.4 A Eos (Absolute)) Baso (Absolute) (test code = 0.0 {x10E3/uL} 0.0-0.3 N Baso (Absolute)) Immature Granulocytes (test 0 % 0-2 N code = Immature Granulocytes) Immature Grans (Abs) (test 0.0 {x10E3/uL} 0.0-0.1 N code = Immature Grans (Abs)) *[facility] ([id number])2011-11-20 00:00:00 Test Item Value Reference Range Interpretation Comments UA - GLUCOSE (test code = 5792-7) Negative N UA - PROTEIN (test code = 03405-7) Trace A *[facility] ([id number])2011-11-20 00:00:00 Test Item Value Reference Range Interpretation Comments UA - GLUCOSE (test code = 5792-7) Negative N UA - PROTEIN (test code = 80500-5) Trace A *[facility] ([id number])2011-11-20 00:00:00 Test Item Value Reference Range Interpretation Comments UA - GLUCOSE (test code = 5792-7) Negative N UA - PROTEIN (test code = 09047-7) Trace A *[facility] ([id number])2011-10-23 00:00:00 Test Item Value Reference Range Interpretation Comments UA - GLUCOSE (test code = 5792-7) Negative N UA - PROTEIN (test code = 38000-4) Trace N *[facility] ([id number])2011-10-23 00:00:00 Test Item Value Reference Range Interpretation Comments UA - GLUCOSE (test code = 5792-7) Negative N UA - PROTEIN (test code = 65964-9) Trace N *[facility] ([id number])2011-10-23 00:00:00 Test Item Value Reference Range Interpretation Comments UA - GLUCOSE (test code = 5792-7) Negative N UA - PROTEIN (test code = 83249-4) Trace N *[facility] ([id number])2011-09-23 00:00:00 Test Item Value Reference Range Interpretation Comments UA - GLUCOSE (test code = 5792-7) Negative N UA - PROTEIN (test code = 77863-3) Trace N *AFP Tetra Profile ([id number])2011-09-23 00:00:00 Test Item Value Reference Interpretation Comments Range Results (test code Report N = Results) Test Results: *Screen N (test code = Test Negative* Results:) Gest. Age on 17.7 {WEEKS} N Collection Date (test code = Gest. Age on Collection Date) Maternal Age At 17.5 {YEARS} N SHUKRI (test code = Maternal Age At SHUKRI) Race (test code = Other N Race) Gestat. Age Based LMP N 05/22/2011 On (test code = Gestat. Age Based On) Weight (test code 178 {lbs} N = Weight) Insulin Dep No N Diabetes (test code = Insulin Dep Diabetes) Multiple Gestation No N (test code = Multiple Gestation) AFP Value (test 35.1 ng/mL N code = AFP Value) AFP MoM (test code 0.95 N = AFP MoM) hCG Value (test 15299 N code = hCG Value) m[iU]/mL hCG MoM (test code 1.93 N = hCG MoM) uE3 Value (test 1.46 ng/mL N code = uE3 Value) uE3 MoM (test code 1.27 N = uE3 MoM) PERCY Value (test 239.87 pg/mL N code = PERCY Value) PERCY MoM (test code 1.46 N = PERCY MoM) [place]BR [place] 1 [place] [address] N (test code = OSBR Risk 1 IN) DSR (Second 2934 N Trimester) 1 IN (test code = DSR (Second Trimester) 1 IN) DSR (By Age) 1 IN 1188 N (test code = DSR (By Age) 1 IN) T18 Risk (test Not N code = T18 Risk) increased T18 (By Age) (test 1:4629 N code = T18 (By Age)) Interpretation NL42 N Interpretatio n: Screen (test code = NegativeThis re sult is Interpretation) screen negat elvis for OSB, Down Syndr ome andTrisomy 18. The AFP MoM and patient spe cific risks calculated areb ased on the gestational age and the clinical inform ation provided.This t est can identify up to 80% of open neural tu be defects.Closed neural tube defects and keenan e open defects may not be detectedby this test. The combination of maternal age, AFP, hCG, uE3, andDIA identifies 75-8 0% of Down Syndrome. The combination ofm aternal age, AFP, hCG and uE 3 identifies 60% of Trisomy 18pregnancies. The [employer] commends amniocentesis b e offered to women age 35 an d older.Recalcula tions are not recommended whe n gestational dating by LMP a ndultrasound are within 10 d ays.Dixie Bernardo, Ph .D., FACPrincipal Genetics Technical Direc tor .References: Av ailable Upon Request. .Mult iples Of Median Cutoffs Abbreviation Definitions For AFP Elevations IDD- Insulin Dep DiabetesSinglet on 2.5 Black 2.8 OSBR- Open Spina BifidaIDD 2.0 T wins 4.5 RiskDSR Cutoff 1:270 DSR- Down Syndrome R iskT18 Cutoff 1:100 T18- Remy royer 18 .Down Syndrome and Tr isomy 18 screening are consideredInves tigational .For further in quiries contact [facility]at [phone]. *[facility] ([id number])2011-09-23 00:00:00 Test Item Value Reference Range Interpretation Comments UA - GLUCOSE (test code = 5792-7) Negative N UA - PROTEIN (test code = 80322-3) Trace N *AFP Tetra Profile ([id number])2011-09-23 00:00:00 Test Item Value Reference Interpretation Comments Range Results (test code Report N = Results) Test Results: *Screen N (test code = Test Negative* Results:) Gest. Age on 17.7 {WEEKS} N Collection Date (test code = Gest. Age on Collection Date) Gestat. Age Based LMP N 05/22/2011 On (test code = Gestat. Age Based On) Maternal Age At 17.5 {YEARS} N SHUKRI (test code = Maternal Age At SHUKRI) Race (test code = Other N Race) Weight (test code 178 {lbs} N = Weight) Insulin Dep No N Diabetes (test code = Insulin Dep Diabetes) Multiple Gestation No N (test code = Multiple Gestation) AFP Value (test 35.1 ng/mL N code = AFP Value) AFP MoM (test code 0.95 N = AFP MoM) hCG Value (test 57882 N code = hCG Value) m[iU]/mL hCG MoM (test code 1.93 N = hCG MoM) uE3 Value (test 1.46 ng/mL N code = uE3 Value) uE3 MoM (test code 1.27 N = uE3 MoM) PERCY Value (test 239.87 pg/mL N code = PERCY Value) PERCY MoM (test code 1.46 N = PERCY MoM) [place]BR [place] 1 [place] [address] N (test code = OSBR Risk 1 IN) DSR (Second 2934 N Trimester) 1 IN (test code = DSR (Second Trimester) 1 IN) DSR (By Age) 1 IN 1188 N (test code = DSR (By Age) 1 IN) T18 Risk (test Not N code = T18 Risk) increased T18 (By Age) (test 1:4629 N code = T18 (By Age)) Interpretation NL42 N Interpretatio n: Screen (test code = NegativeThis re sult is Interpretation) screen negat elvis for OSB, Down Syndr ome andTrisomy 18. The AFP MoM and patient spe cific risks calculated areb ased on the gestational age and the clinical inform ation provided.This t est can identify up to 80% of open neural tu be defects.Closed neural tube defects and keenan e open defects may not be detectedby this test. The combination of maternal age, AFP, hCG, uE3, andDIA identifies 75-8 0% of Down Syndrome. The combination ofm aternal age, AFP, hCG and uE 3 identifies 60% of Trisomy 18pregnancies. The [employer]re commends amniocentesis b e offered to women age 35 an d older.Recalcula tions are not recommended whe n gestational dating by LMP a ndultrasound are within 10 d ays.Dixie Bernardo, Ph .D., [facility] Technical [facility] .References: Av ailable Upon Request. .Multi ples Of Median Cutoffs Abbreviation Definitions For AFP Elevations IDD- Insulin Dep DiabetesSinglet on 2.5 Black 2.8 OSBR- Open Spina BifidaIDD 2.0 T wins 4.5 RiskDSR Cutoff 1:270 DSR- Down Syndrome R iskT18 Cutoff 1:100 T18- Remy royer 18 .Down Syndrome and Tr isomy 18 screening are consideredInves tigational .For further in quiries contact [facility]at [phone]. *[facility] ([id number])2011-09-23 00:00:00 Test Item Value Reference Range Interpretation Comments UA - GLUCOSE (test code = 5792-7) Negative N UA - PROTEIN (test code = 11156-0) Trace N *AFP Tetra Profile ([id number])2011-09-23 00:00:00 Test Item Value Reference Interpretation Comments Range Results (test code Report N = Results) Test Results: *Screen N (test code = Test Negative* Results:) Gest. Age on 17.7 {WEEKS} N Collection Date (test code = Gest. Age on Collection Date) Maternal Age At 17.5 {YEARS} N SHUKRI (test code = Maternal Age At SHUKRI) Race (test code = Other N Race) Gestat. Age Based LMP N 05/22/2011 On (test code = Gestat. Age Based On) Weight (test code 178 {lbs} N = Weight) Insulin Dep No N Diabetes (test code = Insulin Dep Diabetes) Multiple Gestation No N (test code = Multiple Gestation) AFP Value (test 35.1 ng/mL N code = AFP Value) AFP MoM (test code 0.95 N = AFP MoM) hCG Value (test 37522 N code = hCG Value) m[iU]/mL hCG MoM (test code 1.93 N = hCG MoM) uE3 Value (test 1.46 ng/mL N code = uE3 Value) uE3 MoM (test code 1.27 N = uE3 MoM) PERCY Value (test 239.87 pg/mL N code = PERCY Value) PERCY MoM (test code 1.46 N = PERCY MoM) OSBR [place] 1 [place] [address] N (test code = OSBR Risk 1 IN) DSR (Second 2934 N Trimester) 1 IN (test code = DSR (Second Trimester) 1 IN) DSR (By Age) 1 IN 1188 N (test code = DSR (By Age) 1 IN) T18 Risk (test Not N code = T18 Risk) increased T18 (By Age) (test 1:4629 N code = T18 (By Age)) Interpretation NL42 N Interpretatio n: Screen (test code = NegativeThis re sult is Interpretation) screen negat elvis for OSB, Down Syndr ome andTrisomy 18. The AFP MoM and patient spe cific risks calculated areb ased on the gestational age and the clinical inform ation provided.This t est can identify up to 80% of open neural tu be defects.Closed neural tube defects and keenan e open defects may not be detectedby this test. The combination of maternal age, AFP, hCG, uE3, andDIA identifies 75-8 0% of Down Syndrome. The combination ofm aternal age, AFP, hCG and uE 3 identifies 60% of Trisomy 18pregnancies. The [employer]re commends amniocentesis b e offered to women age 35 an d older.Recalcula tions are not recommended whe n gestational dating by LMP a ndultrasound are within 10 d ays.Dixie Bernardo, Ph .D., [facility] Technical Direc [facility] .References: Av ailable Upon Request. .Multi ples Of Median Cutoffs Abbreviation Definitions For AFP Elevations IDD- Insulin Dep DiabetesSinglet on 2.5 Black 2.8 OSBR- Open Spina BifidaIDD 2.0 T wins 4.5 RiskDSR Cutoff 1:270 DSR- Down Syndrome R iskT18 Cutoff 1:100 T18- Remy royer 18 .Down Syndrome and Tr isomy 18 screening are consideredInves tigational .For further in quiries contact [facility]at [phone]. *[facility] ([id number])2011-08-27 00:00:00 Test Item Value Reference Range Interpretation Comments UA - GLUCOSE (test code = 5792-7) Negative N UA - PROTEIN (test code = 72211-8) Trace N *[facility] ([id number])2011-08-27 00:00:00 Test Item Value Reference Range Interpretation Comments UA - GLUCOSE (test code = 5792-7) Negative N UA - PROTEIN (test code = 23140-9) Trace N *[facility] ([id number])2011-08-27 00:00:00 Test Item Value Reference Range Interpretation Comments UA - GLUCOSE (test code = 5792-7) Negative N UA - PROTEIN (test code = 23978-8) Trace N *[facility] ([id number])2011-08-07 00:00:00 Test Item Value Reference Range Interpretation Comments UA - GLUCOSE (test code = 5792-7) Negative N UA - PROTEIN (test code = 22757-9) 30 (1+) A *[facility] ([id number])2011-08-07 00:00:00 Test Item Value Reference Range Interpretation Comments UA - GLUCOSE (test code = 5792-7) Negative N UA - PROTEIN (test code = 30931-8) 30 (1+) A *[facility] ([id number])2011-08-07 00:00:00 Test Item Value Reference Range Interpretation Comments UA - GLUCOSE (test code = 5792-7) Negative N UA - PROTEIN (test code = 88105-2) 30 (1+) A *[facility] ([id number])2011-07-29 00:00:00 Test Item Value Reference Range Interpretation Comments UA - GLUCOSE (test code = 5792-7) Negative N UA - PROTEIN (test code = 77413-3) 30 (1+) A *[facility] ([id number])2011-07-29 00:00:00 Test Item Value Reference Range Interpretation Comments UA - GLUCOSE (test code = 5792-7) Negative N UA - PROTEIN (test code = 61404-4) 30 (1+) A *[facility] ([id number])2011-07-29 00:00:00 Test Item Value Reference Range Interpretation Comments UA - GLUCOSE (test code = 5792-7) Negative N UA - PROTEIN (test code = 80717-9) 30 (1+) A Urine Culture, routine ([id number])2011-07-18 00:00:00 Test Item Value Reference Range Interpretation Comments Urine Culture, Routine (test Final report N code = 630-4) Result 1 (test code = Result 1) No growth N Urine Culture, routine ([id number])2011-07-18 00:00:00 Test Item Value Reference Range Interpretation Comments Urine Culture, Routine (test Final report N code = 630-4) Result 1 (test code = Result 1) No growth N Urine Culture, routine ([id number])2011-07-18 00:00:00 Test Item Value Reference Range Interpretation Comments Urine Culture, Routine (test Final report N code = 630-4) Result 1 (test code = Result 1) No growth N OBSTETRIC PANEL ([id number])2011-07-08 00:00:00 Test Item Value Reference Range Interpretation Comments HBsAg Screen (test Negative N code = 5196-1) Rubella Antibodies, 46 {IU/mL} N Non-immu ne <5 IgG (test code = Equivocal 5 - 9 5334-8) Immune >9 Blood Grouping (test A N code = 883-9) Antibody Screen Negative N (test code = Antibody Screen) RPR (test code = Non Reactive N RPR) Rh Factor (D) (test Positive N Please n ote: Prior code = 44269-6) records for this patient's ABO / Rh type are notavailable fo r additional verification. HIV 1/O/2 Abs, Qual Non Reactive N (test code = 71045-4) WBC (test code = 7.4 {x10E3/uL} 4.0-9.1 N 6690-2) RBC (test code = 4.07 {x10E6/uL} 3.91-5.26 N 789-8) Hemoglobin (test 12.3 g/dL 11.7-15.0 N code = 718-7) Hematocrit (test 36.7 % 34.8-43.5 N code = 4544-3) MCV (test code = 90 fL 80-92 N 787-2) MCH (test code = 30.2 pg 27.3-31.7 N 785-6) HIV 1/O/2 Abs-Index <1.00 N Index Va lue: Value (test code = Specimen reactivity 11699-3) relative to the negative cutoff . MCHC (test code = 33.5 g/dL 33.0-36.0 N 786-4) RDW (test code = 14.2 % 12.3-14.5 N 788-0) Platelets (test code 321 {x10E3/uL} 150-349 N = 777-3) Neutrophils (test 65 % 40-70 N code = Neutrophils) Lymphs (test code = 26 % 20-47 N Lymphs) Monocytes (test code 6 % 3-10 N = Monocytes) Eos (test code = 3 % 0-4 N Eos) Basos (test code = 0 % 0-2 N Basos) Neutrophils 4.7 {x10E3/uL} 1.5-5.6 N (Absolute) (test code = Neutrophils (Absolute)) Lymphs (Absolute) 1.9 {x10E3/uL} 1.1-3.1 N (test code = Lymphs (Absolute)) Monocytes(Absolute) 0.5 {x10E3/uL} 0.1-0.7 N (test code = Monocytes(Absolute)) Eos (Absolute) (test 0.2 {x10E3/uL} 0.0-0.4 N code = Eos (Absolute)) Baso (Absolute) 0.0 {x10E3/uL} 0.0-0.3 N (test code = Baso (Absolute)) Immature 0 % 0-2 N Granulocytes (test code = Immature Granulocytes) Immature Grans (Abs) 0.0 {x10E3/uL} 0.0-0.1 N (test code = Immature Grans (Abs)) URINE STEVE CULTURE-KIMBERLY COL COUNT ([id number])2011-07-08 00:00:00 Test Item Value Reference Range Interpretation Comments Urine Final report N Culture,Comprehensiv e (test code = 630-4) Result 1 (test code NG36 N No growt h in 36 - 48 = Result 1) hours. Chlamydia/GC Amplification(APTIMA SWAB) ([id number])2011-07-08 00:00:00 Test Item Value Reference Range Interpretation Comments Chlamydia trachomatis, Negative N SELAM (test code = 56192-7) Neisseria gonorrhoeae, Negative N SELAM (test code = 95210-9) Please note: (test SPRCS N Acceptabl e specimens code = Please note:) for thi s test are male urethral swab,endocervic al swab and liquid base d pap specimens, vagi nal swabs inAPTIMA transports and first void urine. See online Directory ofSer vices for test number for rectal and phar yngeal specimens. *[facility] (without microscopy) ([id number])2011-07-08 00:00:00 Test Item Value Reference Range Interpretation Comments UA - CLARITY L (test code = UA - clear N CLARITY L) UA - LEUKOCYTE ESTERASE L (test negative N code = UA - LEUKOCYTE ESTERASE L) UA - PH L (test code = UA - PH L) 6.0 N PRO (test code = PRO) Negative N URINE UROBILINOGEN SEMIQUAN L 0.2 E.U./dl 0.2-0.2 N (test code = URINE UROBILINOGEN SEMIQUAN L) UA - NITRITE L (test code = UA - negative N NITRITE L) UA - COLOR L (test code = UA - Yellow N COLOR L) GLU (test code = GLU) Negative N UA - BILIRUBIN L (test code = UA Negative N - BILIRUBIN L) KET (test code = KET) negative N S G (test code = S G) 1.025 N UA - BLOOD L (test code = UA - Negative N BLOOD L) *[facility] ([id number])2011-07-08 00:00:00 Test Item Value Reference Range Interpretation Comments UA - GLUCOSE (test code = 5792-7) Negative N UA - PROTEIN (test code = 79393-8) Negative N OBSTETRIC PANEL ([id number])2011-07-08 00:00:00 Test Item Value Reference Range Interpretation Comments HBsAg Screen (test Negative N code = 5196-1) Rubella Antibodies, 46 {IU/mL} N Non-immu ne <5 IgG (test code = Equivocal 5 - 9 5334-8) Immune >9 Blood Grouping (test A N code = 883-9) Rh Factor (D) (test Positive N Please n ote: Prior code = 14102-8) records for this patient's ABO / Rh type are notavailable fo r additional verification. Antibody Screen Negative N (test code = Antibody Screen) RPR (test code = Non Reactive N RPR) HIV 1/O/2 Abs-Index <1.00 N Index Va lue: Value (test code = Specimen reactivity 52548-0) relative to the negative cutoff . HIV 1/O/2 Abs, Qual Non Reactive N (test code = 45263-2) WBC (test code = 7.4 {x10E3/uL} 4.0-9.1 N 6690-2) RBC (test code = 4.07 {x10E6/uL} 3.91-5.26 N 789-8) Hemoglobin (test 12.3 g/dL 11.7-15.0 N code = 718-7) Hematocrit (test 36.7 % 34.8-43.5 N code = 4544-3) MCV (test code = 90 fL 80-92 N 787-2) MCH (test code = 30.2 pg 27.3-31.7 N 785-6) MCHC (test code = 33.5 g/dL 33.0-36.0 N 786-4) RDW (test code = 14.2 % 12.3-14.5 N 788-0) Platelets (test code 321 {x10E3/uL} 150-349 N = 777-3) Neutrophils (test 65 % 40-70 N code = Neutrophils) Lymphs (test code = 26 % 20-47 N Lymphs) Monocytes (test code 6 % 3-10 N = Monocytes) Eos (test code = 3 % 0-4 N Eos) Basos (test code = 0 % 0-2 N Basos) Neutrophils 4.7 {x10E3/uL} 1.5-5.6 N (Absolute) (test code = Neutrophils (Absolute)) Lymphs (Absolute) 1.9 {x10E3/uL} 1.1-3.1 N (test code = Lymphs (Absolute)) Monocytes(Absolute) 0.5 {x10E3/uL} 0.1-0.7 N (test code = Monocytes(Absolute)) Eos (Absolute) (test 0.2 {x10E3/uL} 0.0-0.4 N code = Eos (Absolute)) Baso (Absolute) 0.0 {x10E3/uL} 0.0-0.3 N (test code = Baso (Absolute)) Immature 0 % 0-2 N Granulocytes (test code = Immature Granulocytes) Immature Grans (Abs) 0.0 {x10E3/uL} 0.0-0.1 N (test code = Immature Grans (Abs)) URINE STEVE CULTURE-KIMBERLY COL COUNT (95266)2011-07-08 00:00:00 Test Item Value Reference Range Interpretation Comments Urine Final report N Culture,Comprehensiv e (test code = 630-4) Result 1 (test code NG36 N No growt h in 36 - 48 = Result 1) hours. Chlamydia/GC Amplification([facility]TIMA SWAB) ([id number])2011-07-08 00:00:00 Test Item Value Reference Range Interpretation Comments Chlamydia trachomatis, Negative N SELAM (test code = 50153-6) Neisseria gonorrhoeae, Negative N SELAM (test code = 05677-4) Please note: (test SPRCS N Acceptabl e specimens code = Please note:) for thi s test are male urethral swab,endocervic al swab and liquid base d pap specimens, vagi nal swabs inAPTIMA transports and first void urine. See online Directory ofSer vices for test number for rectal and phar yngeal specimens. *[facility] (without microscopy) ([id number])2011-07-08 00:00:00 Test Item Value Reference Range Interpretation Comments UA - CLARITY L (test code = UA - clear N CLARITY L) UA - LEUKOCYTE ESTERASE L (test negative N code = UA - LEUKOCYTE ESTERASE L) UA - NITRITE L (test code = UA - negative N NITRITE L) URINE UROBILINOGEN SEMIQUAN L 0.2 E.U./dl 0.2-0.2 N (test code = URINE UROBILINOGEN SEMIQUAN L) PRO (test code = PRO) Negative N UA - PH L (test code = UA - PH L) 6.0 N UA - BLOOD L (test code = UA - Negative N BLOOD L) S G (test code = S G) 1.025 N KET (test code = KET) negative N UA - BILIRUBIN L (test code = UA Negative N - BILIRUBIN L) GLU (test code = GLU) Negative N UA - COLOR L (test code = UA - Yellow N COLOR L) *[facility] - OB ([id number])2011-07-08 00:00:00 Test Item Value Reference Range Interpretation Comments UA - GLUCOSE (test code = 5792-7) Negative N UA - PROTEIN (test code = 57814-4) Negative N OBSTETRIC PANEL ([id number])2011-07-08 00:00:00 Test Item Value Reference Range Interpretation Comments HBsAg Screen (test Negative N code = 5196-1) Rubella Antibodies, 46 {IU/mL} N Non-immu ne <5 IgG (test code = Equivocal 5 - 9 5334-8) Immune >9 Blood Grouping (test A N code = 883-9) Antibody Screen Negative N (test code = Antibody Screen) RPR (test code = Non Reactive N RPR) Rh Factor (D) (test Positive N Please n ote: Prior code = 59077-7) records for this patient's ABO / Rh type are notavailable fo r additional verification. HIV 1/O/2 Abs, Qual Non Reactive N (test code = 78857-0) WBC (test code = 7.4 {x10E3/uL} 4.0-9.1 N 6690-2) RBC (test code = 4.07 {x10E6/uL} 3.91-5.26 N 789-8) Hemoglobin (test 12.3 g/dL 11.7-15.0 N code = 718-7) Hematocrit (test 36.7 % 34.8-43.5 N code = 4544-3) MCV (test code = 90 fL 80-92 N 787-2) MCH (test code = 30.2 pg 27.3-31.7 N 785-6) HIV 1/O/2 Abs-Index <1.00 N Index Va lue: Value (test code = Specimen reactivity 70555-5) relative to the negative cutoff . MCHC (test code = 33.5 g/dL 33.0-36.0 N 786-4) RDW (test code = 14.2 % 12.3-14.5 N 788-0) Platelets (test code 321 {x10E3/uL} 150-349 N = 777-3) Neutrophils (test 65 % 40-70 N code = Neutrophils) Lymphs (test code = 26 % 20-47 N Lymphs) Monocytes (test code 6 % 3-10 N = Monocytes) Eos (test code = 3 % 0-4 N Eos) Basos (test code = 0 % 0-2 N Basos) Neutrophils 4.7 {x10E3/uL} 1.5-5.6 N (Absolute) (test code = Neutrophils (Absolute)) Lymphs (Absolute) 1.9 {x10E3/uL} 1.1-3.1 N (test code = Lymphs (Absolute)) Monocytes(Absolute) 0.5 {x10E3/uL} 0.1-0.7 N (test code = Monocytes(Absolute)) Eos (Absolute) (test 0.2 {x10E3/uL} 0.0-0.4 N code = Eos (Absolute)) Baso (Absolute) 0.0 {x10E3/uL} 0.0-0.3 N (test code = Baso (Absolute)) Immature 0 % 0-2 N Granulocytes (test code = Immature Granulocytes) Immature Grans (Abs) 0.0 {x10E3/uL} 0.0-0.1 N (test code = Immature Grans (Abs)) URINE [facility]E CULTURE-KIMBERLY COL COUNT ([id number])2011-07-08 00:00:00 Test Item Value Reference Range Interpretation Comments Urine Final report N Culture,Comprehensiv e (test code = 630-4) Result 1 (test code NG36 N No growt h in 36 - 48 = Result 1) hours. Chlamydia/GC Amplification([facility] SWAB) ([id number])2011-07-08 00:00:00 Test Item Value Reference Range Interpretation Comments Chlamydia trachomatis, Negative N SELAM (test code = 69228-5) Neisseria gonorrhoeae, Negative N SELAM (test code = 88875-5) Please note: (test SPRCS N Acceptabl e specimens code = Please note:) for thi s test are male urethral swab,endocervic al swab and liquid base d pap specimens, vagi nal swabs inAPTIMA transports and first void urine. See online Directory ofSer vices for test number for rectal and phar yngeal specimens. *[facility] (without microscopy) ([id number])2011-07-08 00:00:00 Test Item Value Reference Range Interpretation Comments UA - CLARITY L (test code = UA - clear N CLARITY L) UA - LEUKOCYTE ESTERASE L (test negative N code = UA - LEUKOCYTE ESTERASE L) UA - PH L (test code = UA - PH L) 6.0 N PRO (test code = PRO) Negative N URINE UROBILINOGEN SEMIQUAN L 0.2 E.U./dl 0.2-0.2 N (test code = URINE UROBILINOGEN SEMIQUAN L) UA - NITRITE L (test code = UA - negative N NITRITE L) UA - COLOR L (test code = UA - Yellow N COLOR L) GLU (test code = GLU) Negative N UA - BILIRUBIN L (test code = UA Negative N - BILIRUBIN L) KET (test code = KET) negative N S G (test code = S G) 1.025 N UA - BLOOD L (test code = UA - Negative N BLOOD L) *[facility] - OB ([id number])2011-07-08 00:00:00 Test Item Value Reference Range Interpretation Comments UA - GLUCOSE (test code = 5792-7) Negative N UA - PROTEIN (test code = 87915-3) Negative N *[facility] ([id number])2011-06-26 00:00:00 Test Item Value Reference Range Interpretation Comments *[facility] urine (test code Positive N = *[facility] urine ) *[facility] (without microscopy) ([id number])2011-06-26 00:00:00 Test Item Value Reference Range Interpretation Comments UA - CLARITY L (test code = UA - Cloudy N CLARITY L) UA - LEUKOCYTE ESTERASE L (test small (1+) A code = UA - LEUKOCYTE ESTERASE L) UA - PH L (test code = UA - PH L) 7.5 N PRO (test code = PRO) Negative N URINE UROBILINOGEN SEMIQUAN L 0.2 E.U./dl 0.2-0.2 N (test code = URINE UROBILINOGEN SEMIQUAN L) UA - NITRITE L (test code = UA - negative N NITRITE L) UA - COLOR L (test code = UA - Yellow N COLOR L) GLU (test code = GLU) Negative N UA - BILIRUBIN L (test code = UA Negative N - BILIRUBIN L) KET (test code = KET) negative N S G (test code = S G) 1.020 N UA - BLOOD L (test code = UA - Negative N BLOOD L) *[facility] ([id number])2011-06-26 00:00:00 Test Item Value Reference Range Interpretation Comments *[facility] urine (test code Positive N = *[facility] ) *[facility] (without microscopy) ([id number])2011-06-26 00:00:00 Test Item Value Reference Range Interpretation Comments UA - CLARITY L (test code = UA - Cloudy N CLARITY L) UA - LEUKOCYTE ESTERASE L (test small (1+) A code = UA - LEUKOCYTE ESTERASE L) UA - NITRITE L (test code = UA - negative N NITRITE L) URINE UROBILINOGEN SEMIQUAN L 0.2 E.U./dl 0.2-0.2 N (test code = URINE UROBILINOGEN SEMIQUAN L) PRO (test code = PRO) Negative N UA - PH L (test code = UA - PH L) 7.5 N UA - BLOOD L (test code = UA - Negative N BLOOD L) S G (test code = S G) 1.020 N KET (test code = KET) negative N UA - BILIRUBIN L (test code = UA Negative N - BILIRUBIN L) GLU (test code = GLU) Negative N UA - COLOR L (test code = UA - Yellow N COLOR L) *[facility] ([id number])2011-06-26 00:00:00 Test Item Value Reference Range Interpretation Comments *[facility] urine (test code Positive N = *[facility] ) *[facility] (without microscopy) ([id number])2011-06-26 00:00:00 Test Item Value Reference Range Interpretation Comments UA - CLARITY L (test code = UA - Cloudy N CLARITY L) UA - LEUKOCYTE ESTERASE L (test small (1+) A code = UA - LEUKOCYTE ESTERASE L) UA - PH L (test code = UA - PH L) 7.5 N PRO (test code = PRO) Negative N URINE UROBILINOGEN SEMIQUAN L 0.2 E.U./dl 0.2-0.2 N (test code = URINE UROBILINOGEN SEMIQUAN L) UA - NITRITE L (test code = UA - negative N NITRITE L) UA - COLOR L (test code = UA - Yellow N COLOR L) GLU (test code = GLU) Negative N UA - BILIRUBIN L (test code = UA Negative N - BILIRUBIN L) KET (test code = KET) negative N S G (test code = S G) 1.020 N UA - BLOOD L (test code = UA - Negative N BLOOD L) [facility] ANTIBODY ([id number])2011-05-30 00:00:00 Test Item Value Reference Range Interpretation Comments H. pylori IgG, Abs <0.9 0.0-0.8 N Negative <0.9 Indeterminate (test code = H. 0.9 - 1.0 Po sitive >1.0 pylori IgG, Abs) HELICOBACTER PYLORI ANTIBODY ([id number])2011-05-30 00:00:00 Test Item Value Reference Range Interpretation Comments H. pylori IgG, Abs <0.9 0.0-0.8 N Negative <0.9 Indeterminate (test code = H. 0.9 - 1.0 P ositive >1.0 pylori IgG, Abs) HEL[facility]BACT[facility] PYLORI ANTIBODY ([id number])2011-05-30 00:00:00 Test Item Value Reference Range Interpretation Comments H. pylori IgG, Abs <0.9 0.0-0.8 N Negative <0.9 (test code = H. Indeterminat e 0.9 - 1.0 pylori IgG, Abs) Positive >1 .0 *[facility] urine ([id number])2010-12-24 00:00:00 Test Item Value Reference Range Interpretation Comments *[facility] (test code Negative N = *[facility] ) *[facility] (without microscopy) ([id number])2010-12-24 00:00:00 Test Item Value Reference Range Interpretation Comments UA - CLARITY L (test code Cloudy A = UA - CLARITY L) UA - LEUKOCYTE ESTERASE L Large (3+) A (test code = UA - LEUKOCYTE ESTERASE L) PRO (test code = PRO) >=300 mg/dl (3+) A URINE UROBILINOGEN 4.0 E.U./dl 0.2-0.2 A SEMIQUAN L (test code = URINE UROBILINOGEN SEMIQUAN L) UA - NITRITE L (test code Positive A = UA - NITRITE L) UA - PH L (test code = UA N 8. 5 - PH L) UA - COLOR L (test code = Red A UA - COLOR L) GLU (test code = GLU) 250 A UA - BILIRUBIN L (test Large (3+) A code = UA - BILIRUBIN L) KET (test code = KET) 40 mg/dl (moderate) A S G (test code = S G) 1.015 N UA - BLOOD L (test code = Positive A UA - BLOOD L) *[facility] ([id number])2010-12-24 00:00:00 Test Item Value Reference Range Interpretation Comments *[facility] (test code Negative N = *[facility] ) *[facility] (without microscopy) ([id number])2010-12-24 00:00:00 Test Item Value Reference Range Interpretation Comments UA - CLARITY L (test code Cloudy A = UA - CLARITY L) UA - LEUKOCYTE ESTERASE L Large (3+) A (test code = UA - LEUKOCYTE ESTERASE L) UA - NITRITE L (test code Positive A = UA - NITRITE L) URINE UROBILINOGEN 4.0 E.U./dl 0.2-0.2 A SEMIQUAN L (test code = URINE UROBILINOGEN SEMIQUAN L) PRO (test code = PRO) >=300 mg/dl (3+) A UA - PH L (test code = UA N 8. 5 - PH L) UA - BLOOD L (test code = Positive A UA - BLOOD L) S G (test code = S G) 1.015 N KET (test code = KET) 40 mg/dl (moderate) A UA - BILIRUBIN L (test Large (3+) A code = UA - BILIRUBIN L) GLU (test code = GLU) 250 A UA - COLOR L (test code = Red A UA - COLOR L) *[facility] urine ([id number])2010-12-24 00:00:00 Test Item Value Reference Range Interpretation Comments *[facility] (test code Negative N = *[facility] ) *[facility] (without microscopy) ([id number])2010-12-24 00:00:00 Test Item Value Reference Range Interpretation Comments UA - CLARITY L (test code Cloudy A = UA - CLARITY L) UA - LEUKOCYTE ESTERASE L Large (3+) A (test code = UA - LEUKOCYTE ESTERASE L) PRO (test code = PRO) >=300 mg/dl (3+) A URINE UROBILINOGEN 4.0 E.U./dl 0.2-0.2 A SEMIQUAN L (test code = URINE UROBILINOGEN SEMIQUAN L) UA - NITRITE L (test code Positive A = UA - NITRITE L) UA - PH L (test code = UA N 8. 5 - PH L) UA - COLOR L (test code = Red A UA - COLOR L) GLU (test code = GLU) 250 A UA - BILIRUBIN L (test Large (3+) A code = UA - BILIRUBIN L) KET (test code = KET) 40 mg/dl (moderate) A S G (test code = S G) 1.015 N UA - BLOOD L (test code = Positive A UA - BLOOD L)
--- NOTE | 2022-09-13 18:43 | RAD REPORT ---
EXAM DESCRIPTION: US - Transvaginal Study Probe - 09/13/2022 6:14 pm CLINICAL HISTORY: ABD PAIN Pelvic pain. COMPARISON: No comparisons FINDINGS: The uterus is normal in size, shape and echotexture. The uterus measures 7.4 x 3.7 x 4.8 c m with volume of 16 cc The endometrial stripe measures 6 mm, within normal limits. The left ovary measures 3.6 x 2 x 1.7 cm with volume of 6 cc. Vascular flow is present in the left ov serafin. Right adnexal structure measures 3.3 x 2.2 x 1.9 cm with volume of 7.2 cc. Transabdominally, flow is diminished. The right ovary was not clearly visualized transvaginally. No significant pelvic ascites. IMPRESSION: 1. The suspected right ovary is identified transabdominally but not transvaginally. The flow in the suspected right ovary is diminished but not completely absent. Ovarian torsion considered unlikely as the ovary is symmetric in size and no free fluid is present. No alternate process identi fied. Consider CT further evaluation. 2. Left ovary is within normal limits and demonstrates vascular flow.
[2022-09-13 18:44] LABS: Urine Blood Negative (Negative); Urine Glucose Negative (Negative); Urine Protein Negative (Negative); Urine Specific Gravity 1.015 (1.005-1.030); Urine pH 5.5 (5.0-7.0)
[2022-09-13] MEDS ORDERED: KETOROLAC 30 MG/ML INJ ONE (19:03)
[2022-09-13 20:23] LABS: Urine Specific Gravity/Preg 1.015 (1.005-1.030)
[2022-09-13 20:27] LABS: Absolute Lymphocytes (CBC) 1.9 K/uL (0.7-4.9); Hematocrit 34.4 % (36.0-45.0); Lymphocytes % 34.1 % (15.3-44.8); MCV 92.4 fL (80-100); MPV 8.2 fL (7.6-11.3); RBC Red Blood Cell Count 3.73 M/uL (3.86-4.86)
[2022-09-13 20:32] LABS: Potassium 3.5 mmol/L (3.5-5.1)
--- NOTE | 2022-09-13 21:29 | RAD REPORT ---
EXAM DESCRIPTION: CTAbdomen Pelvis W Contrast - 09/13/2022 9:06 pm CLINICAL HISTORY: RLQ pain COMPARISON: No comparisons TECHNIQUE: CT of the abdomen and pelvis was performed with IV contrast. All CT scans are performed using dose optimization technique as appropriate and may include automated exposure control or mA/KV adjustment according to patient size. FINDINGS: Lower chest: No acute abnormality. Liver: No acute abnormality or suspicious lesions. Biliary: No biliary ductal dilatation. Stomach: No significant focal abnormality. Duodenum: No significant focal abnormality. Pancreas: No significant abnormality. Spleen: No significant abnormality. Adrenal: No suspicious lesions. Kidney/ureter: No hydronephrosis. No renal calculi. Retroperitoneum: No retroperitoneal adenopathy. Vascular: No aneurysm. Bowel: Appendectomy.. No bowel obstruction. Peritoneum: No ascites or free air. Bladder: Grossly unremarkable. Reproductive: No adnexal masses. The ovaries have an unremarkable appearance. Bones: No acute fracture. Other: Soft tissue implant measuring 2.3 cm with stranding in the lower abdominal wall just ventral t o the right rectus muscle. A smaller nodules present in the left lower abdominal wall measuring 12 mi llimeters. IMPRESSION: Soft tissue implant in the right lower abdominal wall presumably the patient's source of pain and most likely representing an endometrioma, possibly in a scar. Nonemergent pelvic MRI with and without contrast can better assess.
--- NOTE | 2022-09-13 22:38 | EDPHYS ---
Physician Documentation [facility] Name: Samaria Germain Age: 27 yrs Sex: Female : 1995 Arrival Date: 09/13/2022 Time: 16:40 Bed 16 Private MD: ED Physician Devyn Milan HPI: 09/14 00:48 This 27 yrs old Female presents to ER via Ambulatory with complaints of kb Abdominal Pain. 00:48 The patient has not experienced similar symptoms in the past. The patient has not kb recently seen a physician. 00:48 The patient presents with abdominal pain right lower quadrant. Onset: The kb symptoms/episode began/occurred 4 day(s) ago. The symptoms do not radiate. Associated signs and symptoms: none. The symptoms are described as constant. Modifying factors: The symptoms are alleviated by nothing, the symptoms are aggravated by pressure. Severity of pain: At its worst the pain was moderate in the emergency department the pain is unchanged. DIRECTOR OF GOLF: 09/13 17:17 LMP 09/06/2022 vg1 Historical: - Allergies: 17:17 No Known Allergies; vg1 - Home Meds: 17:17 None [Active]; vg1 - PMHx: 17:17 None; vg1 - PSHx: 17:17 Appendectomy; vg1 - Immunization history:: Client reports having NOT received the Covid vaccine. - Social history:: Smoking status: Patient denies any tobacco usage or history of. ROS: 09/14 00:48 Constitutional: Negative for fever, chills, and weight loss. kb Abdomen/GI: Positive for abdominal pain. All other systems are negative. Exam: 00:48 Constitutional: This is a well developed, well nourished patient who is awake, alert, kb and in no acute distress. Head/Face: Normocephalic, atraumatic. ENT: Moist Mucous membranes Cardiovascular: Regular rate and rhythm with a normal S1 and S2. No gallops, murmurs, or rubs. No pulse deficits. Respiratory: Respirations even and unlabored. No increased work of breathing. Talking in full sentences Skin: Warm, dry with normal turgor. Normal color. MS/ Extremity: Pulses equal, no cyanosis. Neurovascular intact. Full, normal range of motion. Neuro: Awake and alert, GCS 15, oriented to person, place, time, and situation. Moves all extremities. Normal gait. 00:48 Abdomen/GI: Inspection: abdomen appears normal, Bowel sounds: normal, Palpation: soft, in all quadrants, moderate abdominal tenderness, in the right lower quadrant. Vital Signs: 09/13 17:12 BP 127 / 92; Pulse 68; Resp 16; Temp 98.4(TE); Pulse Ox 100% ; Weight 80.74 kg; Height vg1 5 ft. 4 in. (162.56 cm); Pain 5/10; 19:00 BP 124 / 86; Pulse 66; Resp 18; Temp 98; Pulse Ox 100% on R/A; Pain 5/10; pf1 20:00 BP 126 / 83; Pulse 63; Resp 16; Pulse Ox 100% on R/A; Pain 5/10; pf1 21:00 BP 116 / 84; Pulse 63; Resp 16; Temp 98.1; Pulse Ox 100% on R/A; pf1 22:00 BP 121 / 85; Pulse 71; Resp 16; Pulse Ox 100% on R/A; Pain 4/10; pf1 23:00 BP 112 / 80; Pulse 63; Resp 16; Temp 98; Pulse Ox 100% on R/A; Pain 0/10; pf1 17:12 Body Mass Index 30.55 (80.74 kg, 162.56 cm) vg1 MDM: 17:15 Patient medically screened. kb 09/14 00:47 Differential diagnosis: Endometriosis, Ovarian cyst, ovarian torsion. Data reviewed: alonso vital signs, nurses notes. Data interpreted: Pulse oximetry: on room air is 100 %. Interpretation: normal. Counseling: I had a detailed discussion with the patient and/or guardian regarding: the historical points, exam findings, and any diagnostic results supporting the discharge/admit diagnosis, lab results, radiology results, the need for outpatient follow up, an OB/Gyne specialist, to return to the emergency department if symptoms worsen or persist or if there are any questions or concerns that arise at home. ED course: History obtained from: Patient. 09/13 18:44 Order name: Urine Dipstick-Ancillary; Complete Time: 18:45 EDMS 09/13 18:46 Order name: Urine --Ancillary (enter results); Complete Time: 20:25 eb 09/13 17:16 Order name: US Transvaginal Study (Probe); Complete Time: 18:45 kb 09/13 18:47 Order name: Basic Metabolic Panel; Complete Time: 20:35 kb 09/13 18:47 Order name: CBC with Diff; Complete Time: 20:35 kb 09/13 18:47 Order name: CT Abd/Pelvis - IV Contrast Only; Complete Time: 21:30 kb 09/13 17:16 Order name: Urine Dipstick-Ancillary (obtain specimen); Complete Time: 18:46 kb 09/13 17:16 Order name: Urine Test (obtain specimen); Complete Time: 18:46 kb 09/13 18:47 Order name: IV Start; Complete Time: 18:56 kb Administered Medications: 09/13 19:10 Drug: Ketorolac 15 mg Route: IVP; Site: right antecubital; bp 20:17 Follow up: Response: No adverse reaction; Marked relief of symptoms; Pain is decreased; pf1 RASS: Alert and Calm (0) Disposition: 09/14 15:09 Co-signature as Attending Physician, Devyn Milan MD. rn Disposition Summary: 09/13/22 22:37 Discharge Ordered Location: Home kb Condition: Stable kb Diagnosis - Lower abdominal pain, unspecified kb Followup: kb - With: Emergency Department - When: As needed - Reason: Worsening of condition Followup: kb - With: Private Physician - When: 2 - 3 days - Reason: Recheck today's complaints, Continuance of care, Re-evaluation by your physician Discharge Instructions: - Discharge Summary Sheet kb - Pelvic Pain, Female, [id number] kb - Abdominal Pain, Adult, [id number] kb Forms: - Medication Reconciliation Form kb - Thank You Letter kb - Antibiotic Education kb - Prescription Opioid Use kb Prescriptions: - Diclofenac Sodium 75 mg Oral tablet,delayed release (DR/EC) - take 1 tablet by ORAL route 2 times per day As needed; 30 tablet; Refills: 0, kb Product Selection Permitted Signatures: Dispatcher [employer] Patti Broussard, MIKE MONTOYAP-Devyn Haines MD MD rn Peltier, Brian RN RN Shabnam Westbrook RN RN Kelli ocasio RN pf1
--- NOTE | 2022-09-13 22:38 | ER ---
Nurse's Notes [facility] Name: Samaria Germain Age: 27 yrs Sex: Female : 1995 Arrival Date: 09/13/2022 Time: 16:40 Bed 16 Private MD: Diagnosis: Lower abdominal pain, unspecified Presentation: 09/13 17:12 Chief complaint: Patient states: RLQ pain since x4 days with nausea, denies vg1 vomiting/diarrhea. States pain is sharp. Coronavirus screen: Vaccine status: Patient reports being unvaccinated. Client denies travel out of the [place] in the last 14 days. Ebola Screen: Patient negative for fever greater than or equal to 101.5 degrees Fahrenheit, and additional compatible Ebola Virus Disease symptoms. Initial Sepsis Screen: Does the patient meet any 2 criteria? No. Patient's initial sepsis screen is negative. Does the patient have a suspected source of infection? No. Patient's initial sepsis screen is negative. Risk Assessment: Do you want to hurt yourself or someone else? Patient reports no desire to harm self or others. Onset of symptoms was September 09, 2022. 17:12 Method Of Arrival: Ambulatory vg1 17:12 Acuity: MEGGAN 3 vg1 Triage Assessment: 17:17 General: Appears uncomfortable, Behavior is calm, cooperative. Pain: Complains of pain vg1 in right lower quadrant Pain currently is 5 out of 10 on a pain scale. Pain began 4 days ago. GI: Abdomen is flat, Reports nausea. : Denies burning with urination, urinary frequency, vaginal bleeding. 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 - Social history:: Smoking status: Patient denies any tobacco usage or history of. Screenin:00 [facility] ED Fall Risk Assessment (Adult) History of falling in the last 3 months, pf1 including since admission No falls in past 3 months (0 pts) Confusion or Disorientation No (0 pts) Intoxicated or Sedated No (0 pts) Impaired Gait No (0 pts) Mobility Assist Device Used No (0 pt) Altered Elimination No (0 pt) Score/Fall Risk Level 0 - 2 = Low Risk Oriented to surroundings, Maintained a safe environment, Educated pt \T\ family on fall prevention, incl call for assistance when getting out of bed, Assessed \T\ reinforced patient's understanding of fall precautions, Provided non-skid footwear, Hourly rounding (assess needs \T\ fall precautionary measures) done, Used ambulatory aids as needed (educated on \T\ assisted with), Used gait belt as appropriate. 19:00 Abuse screen: Denies threats or abuse. Nutritional screening: No deficits noted. pf1 Tuberculosis screening: No symptoms or risk factors identified. Assessment: 19:00 General: Appears in no apparent distress. comfortable, well groomed, well developed, pf1 Behavior is calm, cooperative, appropriate for age, quiet. 19:00 Pain: Complains of pain in right lower quadrant Pain currently is 5 out of 10 on a pain pf1 scale. Neuro: No deficits noted. Level of Consciousness is awake, alert, obeys commands, Oriented to person, place, time, situation. Cardiovascular: No deficits noted. Respiratory: No deficits noted. Airway is patent Trachea midline Respiratory effort is even, unlabored, Respiratory pattern is regular, symmetrical, Breath sounds are clear bilaterally. GI: Abdomen is round non-distended, Bowel sounds present X 4 quads. Abd is soft Abdomen is tender to palpation in right lower quadrant Reports nausea. : No deficits noted. No signs and/or symptoms were reported regarding the genitourinary system. EENT: No deficits noted. No signs and/or symptoms were reported regarding the EENT system. Derm: No deficits noted. No signs and/or symptoms reported regarding the dermatologic system. 20:00 Reassessment: Patient appears in no apparent distress at this time. No changes from pf1 previously documented assessment. Patient and/or family updated on plan of care and expected duration. Pain level reassessed. 20:10 General: labs recollected and sent. pf1 21:22 Reassessment: Patient appears in no apparent distress at this time. No changes from pf1 previously documented assessment. Patient and/or family updated on plan of care and expected duration. Pain level reassessed. Patient pending catscan results. Call light at BS. Updated patient on plan of care. Patient verbalized plan of care understanding. Continue monitoring patient.. 22:00 Reassessment: Patient appears in no apparent distress at this time. No changes from pf1 previously documented assessment. Patient and/or family updated on plan of care and expected duration. Pain level reassessed. Patient is alert, oriented x 3, equal unlabored respirations, skin warm/dry/pink. Patient states feeling better. Patient states symptoms have improved. Vital Signs: 17:12 BP 127 / 92; Pulse 68; Resp 16; Temp 98.4(TE); Pulse Ox 100% ; Weight 80.74 kg; Height vg1 5 ft. 4 in. (162.56 cm); Pain 5/10; 19:00 BP 124 / 86; Pulse 66; Resp 18; Temp 98; Pulse Ox 100% on R/A; Pain 5/10; pf1 20:00 BP 126 / 83; Pulse 63; Resp 16; Pulse Ox 100% on R/A; Pain 5/10; pf1 21:00 BP 116 / 84; Pulse 63; Resp 16; Temp 98.1; Pulse Ox 100% on R/A; pf1 22:00 BP 121 / 85; Pulse 71; Resp 16; Pulse Ox 100% on R/A; Pain 4/10; pf1 23:00 BP 112 / 80; Pulse 63; Resp 16; Temp 98; Pulse Ox 100% on R/A; Pain 0/10; pf1 17:12 Body Mass Index 30.55 (80.74 kg, 162.56 cm) vg1 ED Course: 16:40 Patient arrived in ED. as 16:42 Patti Jimenez [facility]NP-C [facility]. kb 16:42 Devyn Milan MD is Attending Physician. kb 17:17 Triage completed. vg1 17:17 Arm band placed on. vg1 18:16 US Transvaginal Study (Probe) In Process Unspecified. EDMS 18:55 Urine collected: clean catch specimen, clear. mm9 18:56 Fabien Purdy, RN is Primary Nurse. bp 19:00 Patient has correct armband on for positive identification. Placed in gown. Bed in low pf1 position. Call light in reach. 19:10 Inserted saline lock: 20 gauge in left antecubital area, using aseptic technique. Blood bp collected. 20:15 Basic Metabolic Panel Sent. pf1 20:15 CBC with Diff Sent. pf1 20:34 Primary Nurse role handed off by Fabien Purdy, RN 21:08 CT Abd/Pelvis - IV Contrast Only In Process Unspecified. EDMS 21:17 Kelli orellana, RN is Primary Nurse. pf1 23:03 No provider procedures requiring assistance completed. IV discontinued, intact, pf1 bleeding controlled, No redness/swelling at site. Pressure dressing applied. Administered Medications: 19:10 Drug: Ketorolac 15 mg Route: IVP; Site: right antecubital; bp 20:17 Follow up: Response: No adverse reaction; Marked relief of symptoms; Pain is decreased; pf1 RASS: Alert and Calm (0) Medication: 23:04 VIS not applicable for this client. pf1 Outcome: 22:37 Discharge ordered by . kb 23:04 Discharged to home ambulatory. pf1 23:04 Condition: improved 23:04 Discharge instructions given to patient, Instructed on discharge instructions, follow up and referral plans. medication usage, Demonstrated understanding of instructions, follow-up care, medications, Prescriptions given X 1. 23:04 Patient left the ED. pf1 Signatures: Dispatcher [employer] EDMS Patti Jimenez, AUDIO NARRATOR-C AUDIO NARRATOR-Eva Fields as Fabien Purdy, RN RN Shabnam Westbrook RN RN 1 Brissa Byrd Haley Martinez mm9 Kelli orellana, RN RN pf1 Corrections: (The following items were deleted from the chart) 21:27 21:24 BP 124 / 86; Pulse 66bpm; Resp 18bpm; Pulse Ox 100% RA; Temp 98F; Pain 5/10; pf1 pf1
[2022-09-14 00:16] VITALS: O2SAT 100
[2022-09-14 00:32] VITALS: BP 112/80; TEMP 98
== END 2022-09-13 23:04 | disposition home or self-care (01) ==
LOC: ER 16:37
DX: R10.31 Right lower quadrant pain (principal)
CPT/HCPCS: 85025; 80048; 36415; 81025; 81003; 74177; 76830; 96374; 99284; Q9967